=== PATIENT | female | born 1940 | race Caucasian/White ===

== ENCOUNTER → 2017-10-12 | Outpatient (CLI) | payer MEDICARE, BC ==
[2017-10-12 09:32] LABS: Basophils # (A) 0.1 k/uL (0-0.2); Basophils % (A) 1 %; Eosinophils # (A) 0.1 k/uL (0-0.7); Eosinophils % (A) 2 %; HCT 40.9 % (34.0-46.0); HGB 13.6 gm/dL (11.4-16.0); Lymphocytes # (A) 1.1 k/uL (1.0-4.8); Lymphocytes % (A) 25 %; MCH 30.1 pg (25.0-35.0); MCHC 33.2 g/dL (31.0-37.0); MCV 90.8 fL (80.0-100.0); Mean Platelet Volume 6.7; Monocytes # (A) 0.3 k/uL (0-1.0); Monocytes % (A) 6 %; Neutrophils # (A) 2.9 k/uL (1.3-7.7); Neutrophils % (A) 64 %; Platelet Count 293 k/uL (150-450); RDW 13.4 % (11.5-15.5); WBC 4.5 k/uL (3.8-10.6)
[2017-10-12 09:46] LABS: Calcium 9.5 mg/dL (8.4-10.2); Potassium 4.8 mmol/L (3.5-5.1); Total Bilirubin 0.6 mg/dL (0.2-1.3); Total Protein 6.3 g/dL (6.3-8.2)
[2017-10-12 10:01] LABS: T4, Free (Free Thyroxine) 1.66 ng/dL (0.78-2.19)
[2017-10-12 21:31] LABS: Hemoglobin A1C 5.4 % (4.0-6.0)
== END | disposition home or self-care (01) ==
LOC: LABWHC1 09:01
PROVIDERS: ATTEND Internal Medicine
DX: E78.5 Hyperlipidemia, unspecified (principal); I10 Essential (primary) hypertension; Z79.899 Other long term (current) drug therapy; E03.9 Hypothyroidism, unspecified; E55.9 Vitamin D deficiency, unspecified
CPT/HCPCS: 36415; 80053; 80061; 82306; 83036; 84439; 84443; 85025

== ENCOUNTER → 2017-11-09 | Outpatient (CLI) | payer MEDICARE ==
--- NOTE | 2017-11-11 11:45 | MM ---
Reason for exam: screening (asymptomatic). Last mammogram was performed 2 years and 2 months ago. History: Patient is postmenopausal. Physical Findings: A clinical breast exam by your physician is recommended on an annual basis and results should be correlated with mammographic findings. MG 3D Screening Mammo W/Cad Bilateral CC and MLO view(s) were taken. Prior study comparison: September 13, 2015, bilateral MG 3d screening mammo w/cad. August 28, 2014, bilateral MG screening mammo w CAD. There is chronic nodularity in the right breast. No significant changes when compared with prior studies. ASSESSMENT: Benign, BI-RAD 2 RECOMMENDATION: Routine screening mammogram of both breasts in 1 year.
== END | disposition home or self-care (01) ==
LOC: RADMAMWWP 16:36
PROVIDERS: ATTEND Obstetrics & Gynecology
DX: Z12.31 Encounter for screening mammogram for malignant neoplasm of breast (principal)
CPT/HCPCS: 77063; 77067

== ENCOUNTER → 2018-09-21 | Outpatient (CLI) | payer MEDICARE ==
[2018-09-21 10:29] LABS: Basophils # (A) 0.1 k/uL (0-0.2); Basophils % (A) 2 %; Eosinophils # (A) 0.1 k/uL (0-0.7); Eosinophils % (A) 3 %; HGB 13.9 gm/dL (11.4-16.0); Lymphocytes # (A) 1.1 k/uL (1.0-4.8); Lymphocytes % (A) 30 %; MCH 29.6 pg (25.0-35.0); MCHC 33.1 g/dL (31.0-37.0); MCV 89.5 fL (80.0-100.0); Mean Platelet Volume 6.7; Monocytes # (A) 0.2 k/uL (0-1.0); Monocytes % (A) 7 %; Neutrophils # (A) 2.1 k/uL (1.3-7.7); Neutrophils % (A) 57 %; Platelet Count 321 k/uL (150-450); RBC 4.69 m/uL (3.80-5.40); RDW 13.2 % (11.5-15.5); WBC 3.7 k/uL (3.8-10.6)
[2018-09-21 16:01] LABS: African American GFR (CKD) 70.5 (60.0-200.0); Albumin 4.2 g/dL (3.80-4.90); Albumin/Globulin Ratio 2.63 (1.60-3.17); Anion Gap 7.6 mmol/L (4.00-12.00); BUN/Creat Ratio 13.33 Ratio (12.00-20.00); Calcium 9.4 mg/dL (8.7-10.3); Carbon Dioxide 26.4 mmol/L (21.6-31.8); Globulin 1.6 g/dL (1.6-3.3); Potassium 4.5 mmol/L (3.5-5.5); Total Bilirubin 0.6 mg/dL (0.3-1.2); Total Protein 5.8 g/dL (6.2-8.2)
[2018-09-21 16:02] LABS: LDL Cholesterol,Calculated 127.4 mg/dL (0.0-131.0); VLDL Calculation 19.6 mg/dL (5.00-40.00)
[2018-09-21 16:08] LABS: T4, Free (Free Thyroxine) 1.8 ng/dL (0.80-1.80)
== END | disposition home or self-care (01) ==
LOC: LABWHC1 08:43
PROVIDERS: ATTEND Internal Medicine
DX: Z00.00 Encounter for general adult medical examination without abnormal findings (principal); E55.9 Vitamin D deficiency, unspecified; I10 Essential (primary) hypertension; E03.9 Hypothyroidism, unspecified; E78.00 Pure hypercholesterolemia, unspecified
CPT/HCPCS: 36415; 80053; 80061; 82306; 84439; 84443; 85025

== ENCOUNTER → 2018-11-08 | Outpatient (CLI) | payer MEDICARE ==
[2018-11-08 16:59] LABS: T4, Free (Free Thyroxine) 1.5 ng/dL (0.80-1.80)
== END | disposition home or self-care (01) ==
LOC: LABWHC1 09:32
PROVIDERS: ATTEND Internal Medicine
DX: E03.9 Hypothyroidism, unspecified (principal); R53.83 Other fatigue
CPT/HCPCS: 36415; 84439; 84443

== ENCOUNTER 2019-01-01 09:05 | Emergency (ER) | payer MEDICARE ==
[2019-01-01 09:16] VITALS: BP 136/86; PULSE 73; RESP 18; TEMP 98.3
--- NOTE | 2019-01-01 09:39 | ED ---
Female Urogenital HPI - General Chief complaint: Urogenital Stated complaint: Blood in urine Time Seen by Provider: 01/01/19 09:25 Source: patient, RN notes reviewed Mode of arrival: ambulatory Limitations: no limitations - History of Present Illness Initial comments: This is a 78-year-old female presents emergency Department with chief complaint of urinary frequency, urgency and hematuria. Patient states symptoms started overnight she states that she felt that she had ago and They have to the bathroom. Patient states that she had some dribbling and which she then noticed that her urine was slightly pink color. Patient states that it seemed more blood related. Patient states that she does not take any blood thinners. Patient denies any history of urinary tract infections, kidney stones. She denies any flank pain. She has no upper abdominal pain she has some nausea no vomiting no diarrhea she has chronic constipation. - Related Data Home Medications Medication Instructions Recorded Confirmed Levothyroxine Sodium [Synthroid] 75 mcg PO DAILY 09/15/14 09/15/14 Loratadine-Pseudoeph 5-120 mg 1 tab PO Q12HR 09/15/14 09/15/14 [Claritin-D 12 Hour] Sennosides [Senokot] 8.6 mg PO DAILY 09/15/14 09/15/14 Previous Rx's Medication Instructions Recorded HYDROcodone/APAP 5-325MG [[place] 1 each PO Q4HR PRN #10 tab 09/16/14 5-325] Levofloxacin [Levaquin] 750 mg PO DAILY #7 tab 09/16/14 Metoprolol Tartrate [Lopressor] 25 mg PO BID #60 tab 09/16/14 Cephalexin [Keflex] 500 mg PO Q8HR #21 cap 01/01/19 Allergies Allergy/AdvReac Type Severity Reaction Status Date / Time egg Allergy Unknown Verified 09/15/14 09:08 Penicillins Allergy Unknown Verified 09/15/14 09:08 Sulfa (Sulfonamide Allergy Unknown Verified 09/15/14 09:08 Antibiotics) Review of Systems ROS Statement: Those systems with pertinent positive or pertinent negative responses have been documented in the HPI. ROS Other: All systems not noted in ROS Statement are negative. Past Medical History Past Medical History: Thyroid Disorder Additional Past Medical History / Comment(s): hypothyroid, constipation, hugo rgic rhinitis History of Any Multi-Drug Resistant Organisms: None Reported Past Surgical History: Hysterectomy Additional Past Surgical History / Comment(s): Sinus, vein stripping, rectal surgery Past Psychological History: No Psychological Hx Reported Smoking Status: Never smoker Past Alcohol Use History: Occasional Past Drug Use History: None Reported - Past Family History Father Family Medical History: No Reported History Mother Family Medical History: No Reported History General Exam Limitations: no limitations General appearance: alert, in no apparent distress Head exam: Present: atraumatic, normocephalic, normal inspection Eye exam: Present: normal appearance, PERRL, EOMI. Absent: scleral icterus, conjunctival injection, periorbital swelling Respiratory exam: Present: normal lung sounds bilaterally. Absent: respiratory distress, wheezes, rales, rhonchi, stridor Cardiovascular Exam: Present: regular rate, normal rhythm, normal heart sounds. Absent: systolic murmur, diastolic murmur, rubs, gallop, clicks GI/Abdominal exam: Present: soft, tenderness (Mild suprapubic), normal bowel sounds. Absent: distended, guarding, rebound, rigid Back exam: Absent: CVA tenderness (R), CVA tenderness (L) Neurological exam: Present: alert Skin exam: Present: warm, dry, intact, normal color. Absent: rash Course Vital Signs 01/01/19 09:13 Temperature 98.3 F Pulse Rate 73 Respiratory 18 Rate Blood Pressure 136/86 O2 Sat by Pulse 99 Oximetry Medical Decision Making - Medical Decision Making 78-year-old female presents emergency department for hematuria, dysuria or frequency. Patient does have evidence of hemorrhagic cystitis. Patient will be treated accordingly with antibiotics. I did explain that she needs to have close follow-up, recheck and that if she has persistent systems she should have further testing to rule out bladder cancer. Patient family updated and results. - Lab Data Lab Results 01/01/19 Range/Units 09:34 Urine Color Red Urine Appearance Bloody H (Clear) Ur Specific [place] [employer] Urine RBC >182 H (0-5) /hpf Urine WBC >182 H (0-5) /hpf Urine WBC Clumps Many H (None) /hpf Urine Mucus Many H (None) /hpf Disposition Clinical Impression: Hemorrhagic cystitis Disposition: HOME SELF-CARE Condition: Stable Instructions (If sedation given, give patient instructions): Urinary Tract Infection in Women (ED) Additional Instructions: Please return to the Emergency Department if symptoms worsen or any other concerns. Prescriptions: Cephalexin [Keflex] 500 mg PO Q8HR #21 cap Is patient prescribed a controlled substance at d/c from ED?: No Referrals: Jyoti Boateng MD [Primary Care Provider] - 1-2 days Time of Disposition: 10:57
[2019-01-01 10:14] LABS: Appearance,Urine Bloody (Clear); Color,Urine Red; Mucus,Urine Many /hpf; RBC,Urine >182 /hpf (0-5)
== END 2019-01-01 11:08 | disposition home or self-care (01) ==
LOC: EC 09:05
DX: N30.91 Cystitis, unspecified with hematuria (principal); R11.0 Nausea; E03.9 Hypothyroidism, unspecified; K59.09 Other constipation; Z88.0 Allergy status to penicillin; Z88.2 Allergy status to sulfonamides; Z91.012 Allergy to eggs; Z79.890 Hormone replacement therapy; Z79.899 Other long term (current) drug therapy; Z87.09 Personal history of other diseases of the respiratory system; Z98.890 Other specified postprocedural states
CPT/HCPCS: 81001; 87077; 87086; 87186; 99283

== ENCOUNTER → 2019-01-26 | Outpatient (CLI) | payer MEDICARE ==
[2019-01-26 18:09] LABS: Appearance,Urine Cloudy (Clear); Bacteria,Urine Few /hpf; Bilirubin,Urine Negative (Negative); Blood,Urine Trace (Negative); Budding Yeast,Urine Moderate /hpf; Color,Urine Yellow; Glucose,Urine (UA) Negative (Negative); Ketones,Urine Negative (Negative); Leukocyte Esterase,Urine Large (Negative); Nitrite,Urine Positive (Negative); Protein,Urine Negative (Negative); RBC,Urine 4 /hpf (0-5); Specific Gravity,Urine 1.015 (1.001-1.035); Squamous Epithelial Cell,Urine <1 /hpf (0-4); Urobilinogen,Urine <2.0 mg/dL (<2.0); WBC,Urine 73 /hpf (0-5)
== END | disposition home or self-care (01) ==
LOC: LABWHC1 16:25
PROVIDERS: ATTEND Internal Medicine
DX: N39.0 Urinary tract infection, site not specified (principal); R31.9 Hematuria, unspecified
CPT/HCPCS: 81001

== ENCOUNTER → 2019-02-07 | Outpatient (CLI) | payer MEDICARE ==
--- NOTE | 2019-02-07 16:26 | US ---
EXAMINATION TYPE: US kidneys/renal and bladder DATE OF EXAM: 02/07/2019 COMPARISON: US, CT CLINICAL HISTORY: R31.9 hematuria. Patient stated had UTI with gross hematuria in December. EXAM MEASUREMENTS: Right Kidney: 9.4 x 4.1 x 4.6 cm Left Kidney: 9.3 x 4.6 x 4.3 cm Post Void Residual Volume: 19.0 mL Right Kidney: No hydronephrosis or masses seen, prominent renal pelvis is noted Left Kidney: No hydronephrosis seen. Very small shadowing calcification is noted in lower pole = 0.3 x 0.5 x 0.2cm Bladder: wnl Bilateral Jets seen: yes Normal Post Void Residual: yes There is no evidence for hydronephrosis at this point in time. No masses are identified. The urinar y bladder is anechoic. Bilateral ureteral jets are seen. IMPRESSION: Small nonobstructing 5 mm left renal calculus. No hydronephrosis of either kidneys. Bilateral uretera l jets are seen.
== END | disposition home or self-care (01) ==
LOC: RADUSWWP 15:23
PROVIDERS: ATTEND Internal Medicine
DX: N20.0 Calculus of kidney (principal); R31.9 Hematuria, unspecified; Z91.012 Allergy to eggs; Z88.0 Allergy status to penicillin; Z88.2 Allergy status to sulfonamides
CPT/HCPCS: 76770

== ENCOUNTER → 2019-06-09 | Outpatient (CLI) | payer MEDICARE ==
--- NOTE | 2019-06-10 13:26 | MM ---
Reason for exam: screening (asymptomatic). Last mammogram was performed 1 year and 7 months ago. History: Patient is postmenopausal. Physical Findings: A clinical breast exam by your physician is recommended on an annual basis and results should be correlated with mammographic findings. MG 3D Screening Mammo W/Cad Bilateral CC and MLO view(s) were taken. Prior study comparison: November 09, 2017, bilateral MG 3d screening mammo w/cad. September 13, 2015, bilateral MG 3d screening mammo w/cad. There are scattered fibroglandular densities. Posterior intramammary lymph nodes redemonstrated. No significant changes when compared with prior studies. ASSESSMENT: Negative, BI-RAD 1 RECOMMENDATION: Routine screening mammogram of both breasts in 1 year.
== END | disposition home or self-care (01) ==
LOC: RADMAMWWP 13:01
PROVIDERS: ATTEND Internal Medicine
DX: Z12.31 Encounter for screening mammogram for malignant neoplasm of breast (principal)
CPT/HCPCS: 77063; 77067

== ENCOUNTER → 2019-11-03 | Outpatient (CLI) | payer MEDICARE ==
[2019-11-03 08:40] LABS: Basophils # (A) 0.1 k/uL (0-0.2); Basophils % (A) 2 %; Eosinophils # (A) 0.2 k/uL (0-0.7); Eosinophils % (A) 4 %; HCT 43.5 % (34.0-46.0); HGB 14.6 gm/dL (11.4-16.0); Lymphocytes # (A) 1.3 k/uL (1.0-4.8); Lymphocytes % (A) 27 %; MCH 30.9 pg (25.0-35.0); MCHC 33.6 g/dL (31.0-37.0); MCV 91.8 fL (80.0-100.0); Mean Platelet Volume 6.9; Monocytes # (A) 0.4 k/uL (0-1.0); Monocytes % (A) 7 %; Neutrophils # (A) 2.9 k/uL (1.3-7.7); Neutrophils % (A) 59 %; Platelet Count 316 k/uL (150-450); RBC 4.73 m/uL (3.80-5.40)
[2019-11-03 17:21] LABS: Albumin/Globulin Ratio 2.22 (1.60-3.17); Anion Gap 8.1 mmol/L (4.00-12.00); BUN/Creat Ratio 16.67 Ratio (12.00-20.00); Calcium 9.4 mg/dL (8.7-10.3); Carbon Dioxide 26.9 mmol/L (21.6-31.8); Chol/HDL Ratio 3.51; Globulin 1.8 g/dL (1.6-3.3); LDL Cholesterol,Calculated 128.6 mg/dL (0.0-131.0); Non-African American GFR(CKD) 60.4 (60.0-200.0); Potassium 4.3 mmol/L (3.5-5.5); Total Bilirubin 0.5 mg/dL (0.3-1.2); Total Protein 5.8 g/dL (6.2-8.2); VLDL Calculation 19.4 mg/dL (5.00-40.00)
[2019-11-03 17:28] LABS: T4, Free (Free Thyroxine) 1.6 ng/dL (0.80-1.80)
== END | disposition home or self-care (01) ==
LOC: LABWHC1 07:57
PROVIDERS: ATTEND Internal Medicine
DX: Z00.00 Encounter for general adult medical examination without abnormal findings (principal); E78.5 Hyperlipidemia, unspecified; I10 Essential (primary) hypertension
CPT/HCPCS: 36415; 80053; 80061; 84439; 84443; 85025

== ENCOUNTER → 2020-08-07 | Outpatient (CLI) | payer MEDICARE ==
--- NOTE | 2020-08-07 13:48 | XR ---
EXAMINATION TYPE: XR ribs LT DATE OF EXAM: 08/07/2020 COMPARISON: NONE HISTORY: Severe left-sided rib pain for 2 weeks after bending injury. TECHNIQUE: A single frontal and oblique images of the left-sided ribs are obtained. FINDINGS: Exam suboptimal due to only 2 images acquired along with demineralization which is noted to lower radiographic sensitivity. Suboptimal evaluation of lower ribs due to demineralization of osseo us structures on background dense tissue. No acute displaced fracture in the upper to mid ribs. Visua lized left lung grossly clear. Underlying scoliosis is present. IMPRESSION: As above.
== END | disposition home or self-care (01) ==
LOC: RADXRMAIN 11:13
PROVIDERS: ATTEND Internal Medicine
DX: S22.32XB Fracture of one rib, left side, initial encounter for open fracture (principal)

== ENCOUNTER → 2020-08-13 | Outpatient (CLI) | payer MEDICARE ==
--- NOTE | 2020-08-14 12:01 | MM ---
Reason for exam: screening (asymptomatic). Last mammogram was performed 1 year and 2 months ago. History: Patient is postmenopausal. Physical Findings: A clinical breast exam by your physician is recommended on an annual basis and results should be correlated with mammographic findings. MG 3D Screening Mammo W/Cad Bilateral CC and MLO view(s) were taken. Prior study comparison: June 09, 2019, bilateral MG 3d screening mammo w/cad. November 09, 2017, bilateral MG 3d screening mammo w/cad. The breast tissue is heterogeneously dense. This may lower the sensitivity of mammography. No significant changes when compared with prior studies. ASSESSMENT: Benign, BI-RAD 2 RECOMMENDATION: Routine screening mammogram of both breasts in 1 year.
--- NOTE | 2020-08-15 09:32 | BD ---
EXAMINATION TYPE: Axial Bone Density DATE OF EXAM: 08/13/2020 COMPARISON: 06/29/2006 CLINICAL HISTORY: Height: 60.5 IN Weight: 122 LBS FRAX RISK QUESTIONS: History of Fracture in Adulthood: LT WRIST FX AGE 72 Secondary Osteoporosis: 3. Menopause before 45: YES TOTAL HYST AGE 29 RISK FACTORS HISTORY OF: History of Wrist Fracture: LT WRIST AGE 72 Surgery to Wrist (left): AGE 72 Active: YES Diet low in dairy products/other sources of calcium: YES Postmenopausal woman: TOTAL HYST AGE 29 Lost more than 2 inches in height since high school: YES 3 INCHES MEDICATIONS: Thyroid Medications: YES Which medication: Levothyroxine How Long: SINCE Additional Medications: LEVOTHYROXINE,HIGH BLOOD PRESSURE EXAM MEASUREMENTS: Bone mineral densitometry was performed using the [email or web address] System. Bone mineral density as measured about the Lumbar spine is: ----- L1-L4(G/cm2): 0.645 T Score Values are as follows: ----- L2: -5.3 ----- L3: -4.6 ----- L4: -3.6 ----- L1-L4: -4.5 Bone mineral density has: Increased 3.1% since study of: 06/29/2006 Bone mineral density about the R hip (g/cm2): 0.542 Bone mineral density about the L hip (g/cm2): 0.564 T Score values are as follows: -----R Neck: -3.6 -----L Neck: -3.4 -----R Total: -3.4 -----L Total: -3.3 Bone mineral density has: Decreased -15.1% since study of: 06/29/2006 IMPRESSION: Osteoporosis NOTE: T-SCORE=SD OF THE YOUNG ADULT MEAN.
== END | disposition home or self-care (01) ==
LOC: RADMAMWWP 14:28
PROVIDERS: ATTEND Obstetrics & Gynecology
DX: Z12.31 Encounter for screening mammogram for malignant neoplasm of breast (principal); M81.0 Age-related osteoporosis without current pathological fracture; Z78.0 Asymptomatic menopausal state
CPT/HCPCS: 77063; 77067; 77080

== ENCOUNTER → 2021-02-11 | Outpatient (CLI) | payer MEDICARE ==
[2021-02-11 14:57] LABS: Basophils # (A) 0.07 X 10*3/uL (0.00-0.10); Basophils % (A) 1.5 %; Eosinophils # (A) 0.13 X 10*3/uL (0.04-0.35); Eosinophils % (A) 2.7 %; HCT 41.5 % (37.2-46.3); HGB 13.8 g/dL (12.0-15.0); Lymphocytes # (A) 1.19 X 10*3/uL (0.90-5.00); Lymphocytes % (A) 24.8 %; MCH 30.5 pg (27.0-32.0); MCHC 33.3 g/dL (32.0-37.0); MCV 91.6 fL (80.0-97.0); Mean Platelet Volume 9.5 fL (9.5-12.2); Monocytes # (A) 0.48 X 10*3/uL (0.20-1.00); Neutrophils # (A) 2.91 X 10*3/uL (1.80-7.70); Neutrophils % (A) 60.8 %; Platelet Count 318 X 10*3/uL (140-440); RBC 4.53 X 10*6/uL (4.10-5.20); RDW 13.2 % (11.5-14.5); WBC 4.79 X 10*3/uL (4.50-10.00)
[2021-02-11 16:14] LABS: Albumin 4.4 g/dL (3.8-4.9); Albumin/Globulin Ratio 2.37 (1.60-3.17); Anion Gap 11.9 mmol/L (4.00-12.00); BUN/Creat Ratio 12.85 Ratio (12.00-20.00); Blood Urea Nitrogen 11.1 mg/dL (9.0-27.0); Calcium 9.5 mg/dL (8.7-10.3); Carbon Dioxide 23.9 mmol/L (21.6-31.8); Chol/HDL Ratio 4.17 Ratio; Globulin 1.9 g/dL (1.6-3.3); HDL Cholesterol 52.7 mg/dL (40.00-60.00); LDL Cholesterol,Calculated 141.3 mg/dL (0.0-131.0); Potassium 4.4 mmol/L (3.5-5.5); T4, Free (Free Thyroxine) 1.68 ng/dL (0.800-1.800); Total Bilirubin 0.5 mg/dL (0.30-1.20); Total Protein 6.2 g/dL (6.2-8.2)
== END | disposition home or self-care (01) ==
LOC: LABWHC1 09:12
PROVIDERS: ATTEND Internal Medicine
DX: Z00.00 Encounter for general adult medical examination without abnormal findings (principal)
CPT/HCPCS: 36415; 80053; 80061; 82306; 84439; 84443; 85025

== ENCOUNTER → 2021-06-17 | Outpatient (CLI) | payer MEDICARE ==
--- NOTE | 2021-06-17 10:06 | CT ---
EXAMINATION TYPE: CT abdomen pelvis w con DATE OF EXAM: 06/17/2021 COMPARISON: CT dated 09/15/2014 HISTORY: diverticulitis CT DLP: 467.20 mGycm Automated exposure control for dose reduction was used. TECHNIQUE: Helical acquisition of images was performed from the lung bases through the pelvis. CONTRAST: Performed with Oral Contrast and with IV Contrast, patient injected with 80 mL mL of Isovue 300. FINDINGS: LUNG BASES: Unremarkable lung bases. Coronary arterial calcifications. LIVER/GB: A few hepatic cysts measuring up to 11 mm. Unremarkable liver otherwise. No radiodense gall bladder calculi or signs of acute cholecystitis. PANCREAS: Small/atrophic. No definite pancreatic lesion. SPLEEN: No significant abnormality is seen. ADRENALS: No significant abnormality is seen. KIDNEYS: Few bilateral renal hypodensities, likely representing tiny renal cysts, otherwise unremarka ble kidneys. FREE AIR: No free air is visualized. RETROPERITONEAL ADENOPATHY: No pathologically enlarged REPRODUCTIVE ORGANS: Previous hysterectomy. No gross adnexal mass. URINARY BLADDER: No significant abnormality is seen. PELVIC ADENOPATHY: No pathologically enlarged OSSEOUS STRUCTURES: Diffuse osteopenia. Grade 1 anterolisthesis of L4 over L5 with severe right L4-5 neural foraminal stenosis. Dextroscoliosis of the upper lumbar spine. BOWEL: Hiatal hernia containing a small portion of the stomach. Unremarkable remainder of the stomac h, duodenum and small bowel. Extensive colonic diverticulosis most evident involving the sigmoid colo n and to a lesser extent the descending colon. Segments of nonspecific colonic wall thickening, for e xample the inferior aspect of the ascending colon and segments in the descending colon, please correl ate with coloscopy results. Significant fecal loading of the colon suggestive of constipation. Ileoce rita conjunction lipoma measuring 2.2 cm. OTHER: Excessive arterial atherosclerotic calcifications. No sizable ascites. IMPRESSION: Colonic wall thickening most evident seen involving the inferior aspect of the ascending colon with s horter segments of the descending colon, nonspecific. Underlying colitis or colonic lesion cannot be excluded, please correlate clinically and with coloscopy results. Extensive colonic diverticulosis wi th significant colonic fecal loading suggestive of constipation. Other incidental findings as detaile d above.
== END | disposition home or self-care (01) ==
LOC: RADCTMAIN 07:39
PROVIDERS: ATTEND Surgery Plastic and Reconstructive Surgery
DX: K57.30 Diverticulosis of large intestine without perforation or abscess without bleeding (principal); K63.89 Other specified diseases of intestine
CPT/HCPCS: 82565; 84520; 74177; 36415; Q9967

== ENCOUNTER → 2021-10-01 | Outpatient (CLI) | payer MEDICARE ==
[2021-10-01 14:50] LABS: HCT 42.5 % (37.2-46.3); HGB 13.6 g/dL (12.0-15.0); MCH 29.9 pg (27.0-32.0); MCV 93.4 fL (80.0-97.0); Mean Platelet Volume 10.2 fL (9.5-12.2); NRBC Per 100 WBC 0 /100 WBCS (0.0-0.0); Platelet Count 329 X 10*3/uL (140-440); RBC 4.55 X 10*6/uL (4.10-5.20); RDW 13.1 % (11.5-14.5); WBC 4.43 X 10*3/uL (4.50-10.00)
[2021-10-01 15:07] LABS: ALT 11 U/L (8-44); AST 22 U/L (13-35); BUN/Creat Ratio 13.78 Ratio (12.00-20.00); Blood Urea Nitrogen 12.4 mg/dL (9.0-27.0); Calcium 9.4 mg/dL (8.7-10.3); Carbon Dioxide 25.9 mmol/L (20.0-27.5); Chloride 105 mmol/L (96-109); Chol/HDL Ratio 3.44 Ratio; Glucose 83 mg/dL (70-110); LDL Cholesterol,Calculated 119.7 mg/dL (0.0-131.0); Non-African American GFR(CKD) 59.5 (60.0-200.0); Potassium 4.5 mmol/L (3.5-5.5); Sodium 141 mmol/L (135-145); VLDL Calculation 19.32 mg/dL (5.00-40.00)
== END | disposition home or self-care (01) ==
LOC: LABWHC1 08:18
PROVIDERS: ATTEND Nurse Practitioner Family
DX: I10 Essential (primary) hypertension (principal); E78.2 Mixed hyperlipidemia
CPT/HCPCS: 36415; 80048; 80061; 84443; 84450; 84460; 85027

== ENCOUNTER → 2021-10-31 | Outpatient (CLI) | payer MEDICARE ==
--- NOTE | 2021-11-01 13:30 | MM ---
Reason for Exam: Screening (asymptomatic). Last mammogram was performed 1 year(s) and 2 month(s) ago. Patient History: Menarche at age 13. First Full-Term at age 15. Left ovary removed at age 29. Right ovary removed at age 17. Hysterectomy at age 29. Postmenopausal. Risk Values: [place] 5 year model risk: 1.0%. NCI Lifetime model risk: 1.4%. Prior Study Comparison: 11/09/2017 Bilateral Screening Mammogram, [facility]. 06/09/2019 Bilateral Screening Mammogram, [facility]. 08/13/2020 Bilateral Screening Mammogram, [facility]. Tissue Density: The breast tissue is heterogeneously dense. This may lower the sensitivity of mammography. Findings: Analyzed By CAD. There is no suspicious group of microcalcifications or new suspicious mass in either breast. Stable bilateral chronic nodularity and vascular calcifications. No significant change from prior examination. Overall Assessment: Benign, BI-RAD 2 Management: Screening Mammogram of both breasts in 1 year. A clinical breast exam by your physician is recommended on an annual basis and results should be correlated with mammographic findings. Electronically signed and approved by: William Cain D.O.
== END | disposition home or self-care (01) ==
LOC: RADMAMWWP 13:43
PROVIDERS: ATTEND Obstetrics & Gynecology
DX: Z12.31 Encounter for screening mammogram for malignant neoplasm of breast (principal); Z78.0 Asymptomatic menopausal state
CPT/HCPCS: 77063; 77067

== ENCOUNTER → 2022-02-10 | Outpatient (CLI) | payer MEDICARE ==
[2022-02-10 18:05] LABS: HCT 41.6 % (37.2-46.3); HGB 13.7 g/dL (12.0-15.0); MCHC 32.9 g/dL (32.0-37.0); Mean Platelet Volume 9.9 fL (9.5-12.2); NRBC Per 100 WBC 0 /100 WBCS (0.0-0.0); Platelet Count 313 X 10*3/uL (140-440); RBC 4.57 X 10*6/uL (4.10-5.20); RDW 13.1 % (11.5-14.5); WBC 4.12 X 10*3/uL (4.50-10.00)
[2022-02-10 18:24] LABS: African American GFR (CKD) 79.6 (60.0-200.0); Albumin 4.6 g/dL (3.8-4.9); Albumin/Globulin Ratio 2.19 (1.60-3.17); Anion Gap 9.5 mmol/L (10.00-18.00); BUN/Creat Ratio 18.13 Ratio (12.00-20.00); Blood Urea Nitrogen 14.5 mg/dL (9.0-27.0); Calcium 9.8 mg/dL (8.7-10.3); Carbon Dioxide 26.5 mmol/L (20.0-27.5); Globulin 2.1 g/dL (1.6-3.3); Non-African American GFR(CKD) 68.7 (60.0-200.0); Potassium 4.6 mmol/L (3.5-5.5); Total Bilirubin 0.4 mg/dL (0.30-1.20); Total Protein 6.7 g/dL (6.2-8.2)
== END | disposition home or self-care (01) ==
LOC: LABWHC1 11:48
PROVIDERS: ATTEND Surgery Plastic and Reconstructive Surgery
DX: Z01.812 Encounter for preprocedural laboratory examination (principal)
CPT/HCPCS: 36415; 80053; 85027

== ENCOUNTER 2022-02-19 09:27 | Inpatient (IN) | payer MEDICARE ==
[2022-02-17 11:28] VITALS: BMI 20.8
--- NOTE | 2022-02-19 08:48 | P.GSHP ---
History of Present Illness H&P Date: 02/19/22 CHIEF COMPLAINT: Sigmoid diverticulitis with partial obstruction HISTORY OF PRESENT ILLNESS: The patient is a 81-year-old female with long- standing history of sigmoid diverticulitis with change in bowel habits and partial obstruction for 3 months. He completed a colonoscopy which excluded underlying neoplasm. Now he presents for sigmoid colon resection. PAST MEDICAL HISTORY: Please see list. PAST SURGICAL HISTORY: Please see list. MEDICATIONS: Please see list. ALLERGIES: Please see list. SOCIAL HISTORY: No illicit drug use FAMILY HISTORY: No reports of Crohn disease or ulcerative colitis. Family history of malignant hyperthermia. REVIEW OF ORGAN SYSTEMS: CONSTITUTIONAL: Denies any fever or chills. HEENT: Denies any nosebleeds. No difficulty swallowing. Wears glasses. LYMPHATIC: The patient denies any lumps and bumps around the neck. ENDOCRINE: Has hypothyroidism. Has blood sugar glucose intolerance. RESPIRATORY: Denies pneumonia. Denies any troubles with breathing or dyspnea on exertion. CARDIOVASCULAR: Denies any chest pain, palpitations, or recent heart attacks. Has hypertensive heart disease. GASTROINTESTINAL: Has chronic diverticulitis. GENITOURINARY: Has increased urinary frequency. MUSCULOSKELETAL: Has back pain, stiffness, joint arthritis. NEUROLOGIC: Denies any numbness or tingling along the distal extremities. No seizure disorders or headaches. PSYCHIATRIC: Denies depression or suidical ideation. HEMATOLOGIC: Denies any abnormal bleeding or bruising. PHYSICAL EXAM: VITAL SIGNS: Stable GENERAL: Well-developed pleasant in no acute distress. HEENT: No scleral icterus. Extraocular movements grossly intact. Moist buccal mucosa. NECK: Supple without lymphadenopathy. CHEST: Unlabored respirations. Equal bilateral excursions. CARDIOVASCULAR: Regular rate and rhythm. Distal 2+ pulses. ABDOMEN: Soft, nontender, nondistended. MUSCULOSKELETAL: No clubbing, cyanosis, or edema. NERUO: Cranial nerves 2-12 grossly intact. PSYCH: Alert and oriented to person place and time. ASSESSMENT: 1. Chronic diverticulitis with partial obstruction 2. Hypertensive heart disease 3. Family history of malignant hyperthermia PLAN: 1. Benefits and risks of surgical robotic sigmoid resection was reviewed in detail. Robotic-assisted approach was also described. 2. Enhanced colon recovery program. 3. DVT prophylaxis. 4. Antibiotic prophylaxis. 5. Inpatient hospitalization greater than 2 nights. Past Medical History Past Medical History: Hypertension, Osteoarthritis (OA), Pneumonia, Skin Disorder, Thyroid Disorder Additional Past Medical History / Comment(s): chronic constipation, allergic rhinitis, diverticulitis, skin condition called DSAP, hx migraines, hiatal hernia, History of Any Multi-Drug Resistant Organisms: None Reported Past Surgical History: Hysterectomy Additional Past Surgical History / Comment(s): vein stripping, rectal surgery for rectal fissure & hemorrhoids, cataracts removed, sinus surg., surg. for tubal preganancy Past Anesthesia/Blood Transfusion Reactions: Family Hisory of Malignant Hyperthermia Additional Past Anesthesia/Blood Transfusion Reaction / Comment(s): grandson has malignant hyperthermia & TAR syndrome. In [facility] in . 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 no one else in family tested Smoking Status: Former smoker - Past Family History Father Family Medical History: Pulmonary Embolus Mother Family Medical History: No Reported History Medications and Allergies Home Medications Medication Instructions Recorded Confirmed Type Loratadine-Pseudoeph 5-120 mg 1 tab PO DAILY 09/15/14 02/17/22 History [Claritin-D 12 Hour] ALPRAZolam [Xanax] 0.25 mg PO TID PRN 07/22/21 02/17/22 History Metoprolol Succinate (ER) [Toprol 25 mg PO DAILY 07/22/21 02/17/22 History XL] Acetaminophen Tab [Tylenol] 500 mg PO Q6H PRN 02/17/22 02/17/22 History Bio Cholesterol Wellness 1 cap PO DAILY 02/17/22 02/17/22 History Cholecalciferol [Vitamin D3 (25 50 mcg PO DAILY 02/17/22 02/17/22 History Mcg = 1000 Iu)] Lactulose 30 ml PO DIRECTED 02/17/22 02/17/22 History Levothyroxine Sodium [Synthroid] 50 mcg PO DAILY 02/17/22 02/17/22 History Senna [place] 125 mg PO HS PRN 02/17/22 02/17/22 History Allergies Allergy/AdvReac Type Severity Reaction Status Date / Time egg Allergy eye Verified 02/17/22 11:06 swelling Penicillins Allergy Dyspnea, Verified 02/17/22 11:06 lips swelled, rapid heart rate Sulfa (Sulfonamide Allergy Anaphylaxis Verified 02/17/22 11:06 Antibiotics)
[~2022-02-19 09:27] MED LIST: Antibiotics per Pharmacy 1 EACH MISC MISCELLANE PRN; HEPARIN SODIUM,PORCINE/PF 5,000 UNIT/0.5 ML SYRINGE SQ PRN; LIDOCAINE 1% (10MG/ML) FOR IV START INTRADERMA PRN
[2022-02-19 11:21] LABS: Glucose,Whole Blood 63 mg/dL (70-110)
[2022-02-19] MEDS: LACTATED RINGERS 1,000 ML IV SCH (11:26)
[2022-02-19] MEDS ORDERED: DEXTROSE 50% SYRINGE 50 ML IVP STA (11:27)
[2022-02-19] MEDS ORDERED: PROPOFOL 10 MG/ML 20 ML VIAL IV ONE (11:29)
[2022-02-19 11:56] LABS: Albumin 4.5 g/dL (3.5-5.0); Calcium 9.2 mg/dL (8.4-10.2); Potassium 4.2 mmol/L (3.5-5.1); Total Bilirubin 0.7 mg/dL (0.2-1.3); Total Protein 6.7 g/dL (6.3-8.2)
[2022-02-19 12:01] LABS: Basophils # (A) 0.1 k/uL (0-0.2); Basophils % (A) 1 %; Eosinophils # (A) 0.1 k/uL (0-0.7); Eosinophils % (A) 2 %; HCT 40.7 % (34.0-46.0); HGB 14.3 gm/dL (11.4-16.0); Lymphocytes # (A) 1.3 k/uL (1.0-4.8); Lymphocytes % (A) 22 %; MCH 31.5 pg (25.0-35.0); MCHC 35.2 g/dL (31.0-37.0); MCV 89.5 fL (80.0-100.0); Mean Platelet Volume 7.9; Monocytes # (A) 0.3 k/uL (0-1.0); Monocytes % (A) 5 %; Neutrophils % (A) 68 %; Platelet Count 318 k/uL (150-450); RBC 4.55 m/uL (3.80-5.40); RDW 13.3 % (11.5-15.5); WBC 5.9 k/uL (3.8-10.6)
[2022-02-19] MEDS ORDERED: ALPRAZolam 0.25 MG TAB PO PRN (12:01)
[2022-02-19] MEDS ORDERED: ACETAMINOPHEN TAB 500 MG TAB PO PRN (12:01)
[2022-02-19 12:09] LABS: Glucose,Whole Blood 125 mg/dL (70-110)
[2022-02-19] MEDS ORDERED: HYDROmorphone 0.5 MG/0.5 ML SYRINGE IVP PRN (12:32)
[2022-02-19] MEDS ORDERED: HYDROmorphone 1 MG/ML 1 ML SYRINGE IVP PRN (12:32)
[2022-02-19] MEDS ORDERED: ONDANSETRON 4 MG/2 ML VIAL IVP PRN (12:32)
[2022-02-19] MEDS ORDERED: NALOXONE 0.4 MG/ML 1 ML VIAL IV PRN (12:32)
[2022-02-19] MEDS ORDERED: LACTATED RINGERS 1,000 ML IV ONE (12:36)
--- NOTE | 2022-02-19 12:38 | P.PCN ---
Date of Procedure: 02/19/22 Description of Procedure: PREOPERATIVE DIAGNOSIS: Diverticulosis with large bowel obstruction POSTOPERATIVE DIAGNOSIS: Diverticulosis with large bowel obstruction Ascending colon adenoma OPERATION: Colonoscopy to the ascending colon Colonoscopy with cold biopsy forceps SURGEON: Teresa Britton MD. ANESTHESIA: MAC. INDICATIONS: The patient is a 81-year-old female who presents for partial large bowel obstruction due to sigmoid colon. Benefits and risks were described and informed consent was obtained. DESCRIPTION OF PROCEDURE: The patient had undergone Sutab prep. The patient had been brought into the operating room and laid in the left lateral decubitus position. After adequate intravenous sedation, the rectum was examined with 2% lidocaine jelly. External hemorrhoids were encountered. The rectal tone was within normal limits. No lesions were palpated in the rectal vault. An Olympus colonoscope was advanced. Due to moderate redundancy of sigmoid colon, scope was advanced to ascending colon despite abdominal wall pressure. The prep was fair. Sigmoid diverticulosis was encountered with moderate redundancy. No colonic polyps were found. No evidence of focal colitis was found. Retroflexion of the scope demonstrated grade 3 internal hemorrhoids without active bleeding or infla mmation. The colon was desufflated. The patient had tolerated the procedure well. Withdrawal time was over 6 minutes. FINDINGS: Aronchick preparation quality scale 2 (1-5) Internal hemorrhoids, grade 3 External prolapsed hemorrhoids, grade 2 No arteriovenous malformations. Removal of one polyp: -Cold biopsy forcep ascending colon, 4 mm No focal colitis. RECOMMENDATIONS: Lower endoscopy in 3 years, 2024 Proceed with colon resection due to stricture at sigmoid colon
[2022-02-19] MEDS: metroNIDAZOLE 500 MG TAB PO SCH ×2 (13:23→17:40)
[2022-02-19] MEDS: NEOMYCIN 500 MG TAB PO SCH ×2 (13:23→17:40)
[2022-02-19] MEDS ORDERED: PEG 3350 (420 GM/BTL) + LYTES 4,000 ML BOTTLE PO ONE (15:00)
[2022-02-19] MEDS: D5-0.45% NACL WITH KCL 20MEQ/L 1,000 ML IV SCH (16:50)
[2022-02-19 17:16] LABS: Glucose,Whole Blood 76 mg/dL (70-110)
--- NOTE | 2022-02-19 20:58 | P.PN ---
Progress Note - Text Progress Note Date: 02/19/22 Patient reevaluated this evening. She is tolerating bowel prep. All questions addressed regarding expectations of surgery. Anesthesia blocks described for optimal pain management. Anticipated length of surgery including sigmoid resection reviewed in detail.
[2022-02-19] MEDS ORDERED: TEMAZEPAM 15 MG CAP PO ONE (21:00)
[2022-02-19] MEDS ORDERED: NEOMYCIN 500 MG TAB PO ONE (23:00)
[2022-02-19] MEDS ORDERED: metroNIDAZOLE 500 MG TAB PO ONE (23:00)
[2022-02-20] MEDS: LEVOTHYROXINE 50 MCG TAB PO SCH (06:47)
[2022-02-20] MEDS: LACTATED RINGERS 1,000 ML IV SCH (06:53)
[2022-02-20] MEDS ORDERED: MELOXICAM 7.5 MG TAB PO PRN (07:00)
[2022-02-20] MEDS ORDERED: ALVIMOPAN 12 MG CAPSULE PO PRN (07:00)
[2022-02-20] MEDS ORDERED: ACETAMINOPHEN TAB 500 MG TAB PO PRN (07:00)
[2022-02-20 07:45] LABS: Basophils # (A) 0.1 k/uL (0-0.2); Basophils % (A) 1 %; Eosinophils # (A) 0.1 k/uL (0-0.7); Eosinophils % (A) 3 %; HCT 37.6 % (34.0-46.0); HGB 13.2 gm/dL (11.4-16.0); Lymphocytes # (A) 1.1 k/uL (1.0-4.8); Lymphocytes % (A) 27 %; MCH 31.9 pg (25.0-35.0); Mean Platelet Volume 7.8; Monocytes # (A) 0.3 k/uL (0-1.0); Monocytes % (A) 8 %; Neutrophils # (A) 2.3 k/uL (1.3-7.7); Neutrophils % (A) 58 %; Platelet Count 268 k/uL (150-450); RBC 4.13 m/uL (3.80-5.40); RDW 13.1 % (11.5-15.5)
[2022-02-20] MEDS: PANTOPRAZOLE 40 MG/10 ML VIAL IV SCH (07:53)
[2022-02-20] MEDS: D5-0.45% NACL WITH KCL 20MEQ/L 1,000 ML IV SCH ×2 (07:53→18:18)
[2022-02-20] MEDS: METOPROLOL SUCCINATE (ER) 25 MG TAB.ER.24H PO SCH (07:54)
[2022-02-20 07:56] LABS: ALT 17 U/L (4-34); AST 29 U/L (14-36); African American GFR (CKD) >90 (>60 ml/min/1.73 sqM); Albumin 3.7 g/dL (3.5-5.0); Albumin/Globulin Ratio 1.8; Alkaline Phosphatase 59 U/L (38-126); Anion Gap 4 mmol/L; Blood Urea Nitrogen 10 mg/dL (7-17); Calcium 8.6 mg/dL (8.4-10.2); Carbon Dioxide 24 mmol/L (22-30); Chloride 109 mmol/L (98-107); Globulin 2.1 g/dL; Glucose 100 mg/dL (74-99); Magnesium 1.9 mg/dL (1.6-2.3); Non-African American GFR(CKD) 85 (>60 ml/min/1.73 sqM); Phosphorus 2.6 mg/dL (2.5-4.5); Potassium 3.8 mmol/L (3.5-5.1); Sodium 137 mmol/L (137-145); Total Bilirubin 0.5 mg/dL (0.2-1.3); Total Protein 5.8 g/dL (6.3-8.2)
--- NOTE | 2022-02-20 09:01 | XR ---
EXAMINATION TYPE: XR chest 1V portable DATE OF EXAM: 02/20/2022 COMPARISON: 12/25/2021 INDICATION: Presurgical clearance TECHNIQUE: Single frontal view of the chest is obtained. FINDINGS: The heart size is normal. The pulmonary vasculature is normal. The lungs are clear. Mild thoracic scoliosis. IMPRESSION: 1. No acute pulmonary process.
[2022-02-20 09:53] LABS: Glucose,Whole Blood 90 mg/dL (70-110)
[2022-02-20] MEDS ORDERED: LACTATED RINGERS 1,000 ML IV ONE ×3 (09:59→13:30)
[2022-02-20] MEDS ORDERED: IV FLUID CONTINUATION 850 ML IV ONE (10:00)
[2022-02-20] MEDS ORDERED: DEXAMETHASONE SOD PHOSPHATE 4 MG/ML 1 ML VIAL IV ONE ×2 (10:00→10:15)
[2022-02-20] MEDS ORDERED: ONDANSETRON 4 MG/2 ML VIAL IVP ONE ×2 (10:00→10:15)
[2022-02-20] MEDS ORDERED: MIDAZOLAM 2 MG/2 ML VIAL IV ONE (10:56)
--- NOTE | 2022-02-20 11:12 | P.ANPRN ---
Procedure Note - Anesthesia - Nerve Block Performed Time Out Performed: Yes (:56) Date of Procedure: 02/20/22 Procedure Start Time: Procedure Stop Time: :05 Location of Patient: PreOp Indication: Acute Post-Operative Pain, Requested by Surgeon (Dr Lucas) Sedation Type: Sedate with meaningful contact maintained Preparation: Sterile Prep Position: Prone Catheter: None Needle Types: Pajunk Needle Gauge: 21 Ultrasound used to visualize needle placement: Yes Ultrasound used to observe medication spread: Yes Injectate: 0.5% Ropivacaine (see comment for volume) (10cc +10cc PF Normal saline each side) Blood Aspirated: No Pain Paresthesia on Injection Noted: No Resistance on Injection: Normal Image Stored and Saved: Yes Events: Uneventful and Well Tolerated
[2022-02-20] MEDS ORDERED: LABETALOL 5 MG/ML VIAL MDV ONE (12:15)
[2022-02-20] MEDS ORDERED: KETOROLAC 15 MG/ML 1 ML VIAL ONE (12:15)
[2022-02-20] MEDS ORDERED: PROPOFOL 10 MG/ML 20 ML VIAL IV ONE (12:15)
[2022-02-20] MEDS ORDERED: KETAMINE 10 MG/ML 20 ML VIAL ONE (12:15)
[2022-02-20] MEDS ORDERED: NEOSTIGMINE 1 MG/ML 10 ML VIAL ONE (12:15)
[2022-02-20] MEDS ORDERED: ONDANSETRON 4 MG/2 ML VIAL ONE (12:15)
[2022-02-20] MEDS ORDERED: ROPIVACAINE 5 MG/ML 30 ML VIAL ONE (12:15)
[2022-02-20] MEDS ORDERED: HYDROmorphone (PF) 1 MG/ML ONE (12:15)
[2022-02-20] MEDS ORDERED: SODIUM CHLORIDE 0.9% (PF) 10 ML VIAL ONE (12:15)
[2022-02-20] MEDS ORDERED: fentaNYL (PF) 50 MCG/ML 2 ML AMP ONE (12:15)
[2022-02-20] MEDS ORDERED: LIDOCAINE 2% INJ 20 MG/ML (2 ML VIAL) ONE (12:15)
[2022-02-20] MEDS ORDERED: GLYCOPYRROLATE 0.2 MG/ML 2 ML VIAL ONE (12:15)
[2022-02-20] MEDS ORDERED: ROCURONIUM 10 MG/ML (5 ML VIAL) IV ONE (12:15)
[2022-02-20] MEDS ORDERED: SODIUM CHLORIDE 0.9% 50 ML with ceFAZolin 2,000 MG IV ONE ×2 (12:21)
[2022-02-20] MEDS ORDERED: SODIUM CHLORIDE 0.9% 100 ML with metroNIDAZOLE-NS PMX 500 MG IV ONE ×2 (12:21)
[2022-02-20] MEDS ORDERED: LIDOCAINE 1%-EPI 1:100,000 20 ML VIAL SQ ONE ×2 (12:31→13:18)
[2022-02-20] MEDS ORDERED: BENZOCAINE/MENTHOL LOZENG 1 EACH LOZENGE MUCOUS MEM PRN (16:19)
[2022-02-20] MEDS ORDERED: HYDROmorphone 0.5 MG/0.5 ML SYRINGE IVP ONE (16:30)
--- NOTE | 2022-02-20 16:42 | P.OP ---
Date of Procedure: 02/20/22 Description of Procedure: SURGEON: LISSA ALONSO MD PREOPERATIVE DIAGNOSES: 1. Sigmoid diverticulitis with large bowel obstruction 2. Hypertensive heart disease 3. Hypothyroidism 4. Chronic constipation 5. Migraines 6. Diaphragmatic hiatal hernia POSTOPERATIVE DIAGNOSES: 1. Sigmoid diverticulitis with large bowel obstruction 2. Hypertensive heart disease 3. Hypothyroidism 4. Chronic constipation 5. Migraines 6. Diaphragmatic hiatal hernia OPERATION: 1. Robotic-assisted daVinci Xi sigmoid colectomy with low anterior resection using 29 mm Ethicon powered stapler 2. Robotic-assisted daVinci Xi laparoscopic lysis of adhesions 3. Intraoperative colonoscopy used for sigmoidoscopy Anesthesia: GETA, local, regional Estimated Blood Loss (ml): 10 Pathology: 1. Sigmoid colon 2. EEA donuts 3. Proximal colotomy Condition: stable Disposition: floor COMPLICATIONS: None. Operative Findings: 1. Redundant sigmoid colon with stricture resected 2. Anastomosis with EEA stapler 29 mm 3. No tension or torsion along the anastomosis 4. Doughnuts thick and both sides and viable 5. Moderately redundant sigmoid colon without tension at anastomosis 6. Negative leak test with viable anastomosis. INDICATIONS: The patient is a 81-year-old female who presents with change in bowel habits, sigmoid diverticulosis with chronic constipation due to stricture. She had prior to the colonoscopy however unsuccessful. Benefits and risks of surgical intervention was described in detail including infection, injury to the ureter, colostomy creation, possibility for additional surgery was discussed at length. Informed consent was obtained. All questions of the patient and family were answered. DESCRIPTION: Earlier the patient had undergone a bowel prep using the enhanced colon recovery program. The patient was transferred to the operating room and placed supine. After general induction, the abdomen was prepped and draped in standard sterile fashion. Ioban was placed along the abdomen to minimize any contamination of skin floor. A Sims catheter was placed. After a timeout protocol was performed, attention was then brought to the left upper quadrant whereby a 0 degree 5 mm laparoscopic trocar entry was performed. The abdominal cavity was entered and insufflated to 15 mmHg pressure, which was tolerated well. Diagnostic laparoscopy confirmed moderately redundant sigmoid colon and active sigmoid volvulus. The small bowel was unremarkable. Next a robotic 12-mm trocar was placed along the right lateral abdominal wall 20 cm superior from the pelvis. Two 8 mm ports were placed along the upper abdomen. Ports were placed 10 cm apart from each other including 20 cm away from the target anatomy of the left pelvis. The 12-mm port was exchanged for an 8 mm robotic port at the left upper quadrant. The robot was docked along the left lateral abdomen. The patient was positioned in steep Trendelenburg position at 21-degrees. Using atraumatic graspers and vessel sealer, the robotic system was docked and primed as described. Instruments were interchanged by the portfolio assistant including hook cautery, needle spotter driver, robotic stapler and vessel sealer. The robot stapler was prepared along the right lateral abdominal wall. The stapler 12-mm port was arranged along the right lateral abdominal wall. Next, attention was brought to identify the sigmoid colon. A stay suture using 3- 0 silk was placed along the anterior serosa of the redundant sigmoid colon. The sigmoid mesentery was mobilized using a vessel sealer whereby the descending colon was marked and tagged. Using multiple fires of the robot stapler 60 mm green load, the proximal sigmoid colon was divided. The mesentery of the sigmoid colon was mobilized towards the pelvic brim and sacral promontory using a vessel sealer. Next, the sigmoid colon was divided using the robotic stapler 60 mm black staple loads. The rest of the sigmoid colon mesentery was mobilized using vessel sealer. Additionally, the sigmoid colon was mobilized onto the colon to minimize injury to the ureters. Additionally, moderate adhesions at the cecum and right upper quadrant ascending colon was identified and similarly lysed using vessel sealer for lysis of adhesions. I went to the foot of the bed to confirm sizers and placement of 29-mm Ethicon powered stapler. I re-scrubbed into the case. The robotic arms were temporarily undocked. A 29-mm anvil was placed with a 3-0 silk sutured at the tip of the anvil producer. Then the anvil was placed via the left upper quadrant 12 mm port. All robotic arms were re-docked. I went back to the console. The staple line was opened using cautery. The anvil was entered into the proximal descending colon. The colotomy was closed using 60 mm green load. Next, the sharp tip of the anvil producer was brought through the staple line. The anvil producer was removed from the abdomen using empty clip appliers. I went to the foot of the bed to place the powered Ethicon 29 mm stapler via the rectum. The anvil and stapler were mated for 1 minute. The doughnuts were intact on both sides and thick. An intraoperative leak test was performed as I inserted the colonoscope to the anastomosis. Endoscopic images were obtained. Irrigation was placed in the pelvis and no air leaks were identified. Irrigation fluid was aspirated from the pelvis until dry. I went back to the console. All sponges and needles were removed from the abdominal cavity. The robot was undocked. I re-scrubbed into the case. Via the left upper quadrant port, the sigmoid colon was removed using 15 mm Endo Catch bag. All sponges were removed from the abdominal cavity. The left upper quadrant incision was widened to 3-cm. No contamination had occurred throughout the case. The fascial defect was oversewn using 0 Vicryl and a Placido Hayes. Next all pneumoperitoneum was evacuated from the abdominal cavity. The 8-mm trocar sites were reapproximated using 4-0 Monocryl in an interrupted subcuticular fashion. Local anesthetic was infiltrated to all wounds for postop analgesia. All incisions were also cleansed with diluted hydrogen peroxide. An ScaleIO advance surgical dressing was placed over the colon extraction site. Liquid glue was applied to the rest of the skin incisions. The patient had tolerated the procedure well. The patient was extubated successfully. The patient was transferred to the postanesthesia care unit in stable condition. Intraoperative findings were described in detail to the patient's family.
--- NOTE | 2022-02-20 17:46 | P.PN ---
Progress Note - Text Progress Note Date: 02/20/22 Family bedside. Patient denies any pain. She is resting comfortably. May have clear liquid diet.
[2022-02-20] MEDS: KETOROLAC 15 MG/ML 1 ML VIAL IVP SCH ×2 (18:18→23:17)
[2022-02-20] MEDS: ACETAMINOPHEN TAB 325 MG TAB PO SCH ×2 (18:18→23:18)
[2022-02-20] MEDS: HEPARIN SODIUM,PORCINE/PF 5,000 UNIT/0.5 ML SYRINGE SQ SCH (20:20)
[2022-02-20] MEDS: ALVIMOPAN 12 MG CAPSULE PO SCH (20:21)
[2022-02-21] MEDS: KETOROLAC 15 MG/ML 1 ML VIAL IVP SCH ×2 (06:01→12:58)
[2022-02-21] MEDS: ACETAMINOPHEN TAB 325 MG TAB PO SCH ×2 (06:01→12:58)
[2022-02-21] MEDS: LEVOTHYROXINE 50 MCG TAB PO SCH (06:01)
[2022-02-21] MEDS: LACTATED RINGERS 1,000 ML IV SCH (06:02)
[2022-02-21] MEDS: HEPARIN SODIUM,PORCINE/PF 5,000 UNIT/0.5 ML SYRINGE SQ SCH (07:35)
[2022-02-21] MEDS: ALVIMOPAN 12 MG CAPSULE PO SCH (07:36)
[2022-02-21] MEDS: METOPROLOL SUCCINATE (ER) 25 MG TAB.ER.24H PO SCH (07:36)
[2022-02-21 07:48] VITALS: BP 110/60; PULSE 56; RESP 17; TEMP 98.7
[2022-02-21 08:44] LABS: Basophils # (A) 0.01 X 10*3/uL (0.00-0.10); Basophils % (A) 0.1 %; Eosinophils # (A) 0.01 X 10*3/uL (0.04-0.35); Eosinophils % (A) 0.1 %; HCT 33.9 % (37.2-46.3); HGB 11.6 g/dL (12.0-15.0); Immature Grans, Automated 0.2 %; Lymphocytes # (A) 1.05 X 10*3/uL (0.90-5.00); Lymphocytes % (A) 12.2 %; MCH 30.5 pg (27.0-32.0); MCHC 34.2 g/dL (32.0-37.0); MCV 89.2 fL (80.0-97.0); Mean Platelet Volume 9.8 fL (9.5-12.2); Monocytes # (A) 0.92 X 10*3/uL (0.20-1.00); Monocytes % (A) 10.7 %; NRBC Per 100 WBC 0 /100 WBCS (0.0-0.0); Neutrophils # (A) 6.61 X 10*3/uL (1.80-7.70); Neutrophils % (A) 76.7 %; Platelet Count 258 X 10*3/uL (140-440); RDW 13.2 % (11.5-14.5); WBC 8.62 X 10*3/uL (4.50-10.00)
[2022-02-21 08:49] LABS: African American GFR (CKD) 93.5 (60.0-200.0); BUN/Creat Ratio 12.14 Ratio (12.00-20.00); Blood Urea Nitrogen 8.5 mg/dL (9.0-27.0); Calcium 8.4 mg/dL (8.7-10.3); Magnesium 1.6 mg/dL (1.5-2.4); Non-African American GFR(CKD) 80.7 (60.0-200.0); Phosphorus 2.2 mg/dL (2.4-5.1); Potassium 4.1 mmol/L (3.5-5.5)
[2022-02-21] MEDS: D5-0.45% NACL WITH KCL 20MEQ/L 1,000 ML IV SCH (09:07)
[2022-02-21] MEDS: PANTOPRAZOLE 40 MG/10 ML VIAL IV SCH (09:07)
--- NOTE | 2022-02-21 13:50 | P.DS ---
Providers Date of admission: 02/19/22 12:33 Expected date of discharge: 02/21/22 Attending physician: Teresa Britton Consults: 02/20/22 08:50 Consult Physician Routine Consulting Provider: [facility] Consult Reason/Comments: Abdominal block Do you want consulting provider notified?: Yes Primary care physician: [facility] Course: POSTOPERATIVE DIAGNOSES: 1. Sigmoid diverticulitis with large bowel obstruction 2. Hypertensive heart disease 3. Hypothyroidism 4. Chronic constipation 5. Migraines 6. Diaphragmatic hiatal hernia COURSE: The patient 81-year-old female status post sigmoid colectomy following a lower anterior resection for sigmoid diverticulosis with stricture. Postoperatively, pain was well controlled. She denied nausea with regular diet. She was voiding spontaneously. Discharge instructions reviewed with her including her at bedside. Close follow-up discharge was reviewed as well. All questions were addressed. Procedures: OPERATION: 1. Robotic-assisted daVinci Xi sigmoid colectomy with low anterior resection using 29 mm Ethicon powered stapler 2. Robotic-assisted daVinci Xi laparoscopic lysis of adhesions 3. Intraoperative colonoscopy used for sigmoidoscopy Anesthesia: GETA, local, regional Estimated Blood Loss (ml): 10 Pathology: 1. Sigmoid colon 2. EEA donuts 3. Proximal colotomy Condition: stable Disposition: floor COMPLICATIONS: None. Operative Findings: 1. Redundant sigmoid colon with stricture resected 2. Anastomosis with EEA stapler 29 mm 3. No tension or torsion along the anastomosis 4. Doughnuts thick and both sides and viable 5. Moderately redundant sigmoid colon without tension at anastomosis 6. Negative leak test with viable anastomosis. Patient Condition at Discharge: Good Plan - Discharge Summary Discharge Rx Participant: No New Discharge Prescriptions: New Ibuprofen [Motrin] 600 mg PO Q8HR PRN #30 tab PRN Reason: Pain Acetaminophen Tab [Tylenol Tab] 1,000 mg PO Q6HR PRN #30 tablet PRN Reason: Pain Lactulose [Cephulac] 30 gm PO DAILY #400 ml Simethicone 40 mg/0.6 ml Drops [Mylicon Drops] 40 mg PO Q6HR PRN #30 ml PRN Reason: Abdominal Distention Continue Loratadine-Pseudoeph 5-120 mg [Claritin-D 12 Hour] 1 tab PO DAILY Metoprolol Succinate (ER) [Toprol XL] 25 mg PO DAILY Cholecalciferol [Vitamin D3 (25 Mcg = 1000 Iu)] 50 mcg PO DAILY Levothyroxine Sodium [Synthroid] 50 mcg PO DAILY Senna Ak Chin 125 mg PO HS PRN PRN Reason: Constipation Lactulose 30 ml PO DIRECTED ALPRAZolam [Xanax] 0.25 mg PO TID PRN PRN Reason: Anxiety Acetaminophen Tab [Tylenol] 500 mg PO Q6H PRN PRN Reason: Pain Bio Cholesterol Wellness 1 cap PO DAILY Discharge Medication List Loratadine-Pseudoeph 5-120 mg [Claritin-D 12 Hour] 1 tab PO DAILY 09/15/14 [History] ALPRAZolam [Xanax] 0.25 mg PO TID PRN 07/22/21 [History] Metoprolol Succinate (ER) [Toprol XL] 25 mg PO DAILY 07/22/21 [History] Acetaminophen Tab [Tylenol] 500 mg PO Q6H PRN 02/17/22 [History] Bio Cholesterol Wellness 1 cap PO DAILY 02/17/22 [History] Cholecalciferol [Vitamin D3 (25 Mcg = 1000 Iu)] 50 mcg PO DAILY 02/17/22 [History] Lactulose 30 ml PO DIRECTED 02/17/22 [History] Levothyroxine Sodium [Synthroid] 50 mcg PO DAILY 02/17/22 [History] Senna Ak Chin 125 mg PO HS PRN 02/17/22 [History] Acetaminophen Tab [Tylenol Tab] 1,000 mg PO Q6HR PRN #30 tablet 02/21/22 [Rx] Ibuprofen [Motrin] 600 mg PO Q8HR PRN #30 tab 02/21/22 [Rx] Lactulose [Cephulac] 30 gm PO DAILY #400 ml 02/21/22 [Rx] Simethicone 40 mg/0.6 ml Drops [Mylicon Drops] 40 mg PO Q6HR PRN #30 ml 02/21/22 [Rx] Follow up Appointment(s)/Referral(s): Teresa Britton MD [STAFF PHYSICIAN] - 02/25/22 (TELEHEALTH 02/25/22) Patient Instructions/Handouts: Hemorrhoids (DC), Diverticulosis Diet (GEN) Activity/Diet/Wound Care/Special Instructions: EXPECT BOWEL MOVEMENT WITH BLOOD FOR 1 WEEK TAKE LAXATIVE FOR CONSTIPATION AFTER 4 DAYS, 02/25/22 Wear abdominal binder for comfort. No lifting over 4 pounds in 4 weeks Mar 22August shower. No bath tub soaks for two weeks until Mar 07 Avoid steak, tough meats and seeds such as raspberry seeds. See diverticulitis, low fiber, colectomy diet Use Tylenol and ibuprofen scheduled for the next 24-48 hours for best pain relief. Use ice along incisions for today to prevent swelling. Discharge Disposition: HOME SELF-CARE
--- NOTE | 2022-02-23 08:54 | P.PN ---
Progress Note - Text Progress Note Date: 02/23/22 Patient called at home since discharge. Patient reports that she is passing flatus and tolerating soft diet. No new complaints. Her pain is well- controlled. Follow telehealth in 2-3 days described. Patient encouraged to call back sooner for any complaints.
--- NOTE | 2022-02-24 09:08 | CDI ---
Documentation Clarification Form Date: 02/24/2022 08:58:00 AM From: Noemi Payton Admit Date: 02/19/2022 12:33:00 PM Patient Name: Deborah Jurado Visit Number: [id number] Discharge Date: 02/21/2022 02:44:00 PM ATTENTION: The Clinical Documentation Specialists (CDI) and [facility] Coding Staff appreciate your assistance in clarifying documentation. Please respond to the clarification below the line at the bottom and electronically sign. The CDI & [facility] Coding staff will review the response and follow-up if needed. Please note: Queries are made part of the Legal Health Record. If you have any questions, please contact the author of this message via ITS. Dr. Teresa Britton Robotic assisted daVinci Xi laparoscopic lysis of adhesions is documented in the Operative Report on . Please clarify if patient had extensive adhesions or did not have extensive adhesions Additional clarification regarding the procedure is requested. History/Risk factors: Diverticulitis and diverticulosis. Hx of hysterectomy Pre-Operative Diagnosis: Sigmoid diverticulitis with large bowel obstruction. Postoperative Diagnosis: Sigmoid diverticulitis with large bowel obstruction. Clinical Indicators: Treatment: Lysis of adhesions Please clarify the following: [remove unnecessary options] [X ] Lysis of extensive adhesions [ ] Lysis of adhesions not extensive [facility] 02/24/[address] [facility]
== END 2022-02-21 14:44 | disposition home or self-care (01) | DRG 329 ==
LOC: ORWHC2ENDO 09:27 → 4SSUR 11:56 → ORWHC2ENDO 12:33 → 4SSUR 13:56
PROVIDERS: ADMIT Surgery Plastic and Reconstructive Surgery; ATTEND Surgery Plastic and Reconstructive Surgery
PROC: 0DBK8ZX Excision of Ascending Colon, Via Natural or Artificial Opening Endoscopic, Diagnostic (ICD-10-PCS; 2022-02-19)
PROC: 8E0W4CZ Robotic Assisted Procedure of Trunk Region, Percutaneous Endoscopic Approach (ICD-10-PCS; principal; 2022-02-20 10:45)
PROC: 0DJD8ZZ Inspection of Lower Intestinal Tract, Via Natural or Artificial Opening Endoscopic (ICD-10-PCS; principal; 2022-02-20 10:45)
PROC: 0DTN4ZZ Resection of Sigmoid Colon, Percutaneous Endoscopic Approach (ICD-10-PCS; principal; 2022-02-20 10:45)
PROC: 0DNW4ZZ Release Peritoneum, Percutaneous Endoscopic Approach (ICD-10-PCS; principal; 2022-02-20 10:45)
DX: K57.32 Diverticulitis of large intestine without perforation or abscess without bleeding (principal); K56.2 Volvulus; K56.600 Partial intestinal obstruction, unspecified as to cause; K57.30 Diverticulosis of large intestine without perforation or abscess without bleeding; K44.9 Diaphragmatic hernia without obstruction or gangrene; K66.0 Peritoneal adhesions (postprocedural) (postinfection); I11.9 Hypertensive heart disease without heart failure; K64.8 Other hemorrhoids; E03.9 Hypothyroidism, unspecified; G43.909 Migraine, unspecified, not intractable, without status migrainosus; K59.09 Other constipation; M19.90 Unspecified osteoarthritis, unspecified site; D12.2 Benign neoplasm of ascending colon; Z79.890 Hormone replacement therapy; Z87.891 Personal history of nicotine dependence; Z88.0 Allergy status to penicillin; Z88.2 Allergy status to sulfonamides; Z91.012 Allergy to eggs; Z87.01 Personal history of pneumonia (recurrent)
CPT/HCPCS: 45380; 64999; 71045; 80048; 80053; 83735; 84100; 85025; 86850; 86900; 86901; 88305; 88307; 93005

== ENCOUNTER → 2022-10-13 | Outpatient (CLI) | payer MEDICARE ==
--- NOTE | 2022-10-13 09:24 | US ---
EXAMINATION TYPE: US abdomen limited DATE OF EXAM: 10/13/2022 COMPARISON: NONE CLINICAL INDICATION: Female, 82 years old with history of R19.00 PELVIC SWELLING; area of RLQ swellin g noted prior to and after colon surgery TECHNIQUE: several sonographic images obtained at area of concern FINDINGS: Anechoic free fluid collection noted at area of concern anterior to peristalsing bowel seg ment: 5.0 x 1.2 x 5.1cm area conforms to moving bowel and is not contained within a capsule. IMPRESSION: 1. Fluid collection within the abdomen of uncertain etiology. Adjacent peristalsing bowel is identifi ed.
[2022-10-13 16:29] LABS: ALT 21 U/L (8-44); AST 30 U/L (13-35); Albumin 4.4 d/dL (3.8-4.9); Alkaline Phosphatase 77 U/L (41-126); Blood Urea Nitrogen 12.6 mg/dL (9.0-27.0); Carbon Dioxide 25.6 mmol/L (21.6-31.8); Chloride 108 mmol/L (96-109); Chol/HDL Ratio 3.47 Ratio; Glucose 87 mg/dL (70-110); LDL Cholesterol,Calculated 119.6 mg/dL (0.0-131.0); Potassium 4.9 mmol/L (3.5-5.5); Sodium 143 mmol/L (135-145); T4, Free (Free Thyroxine) 1.62 ng/dL (0.80-1.80); Total Bilirubin 0.5 mg/dL (0.3-1.2); Total Protein 6.4 d/dL (6.2-8.2)
[2022-10-13 18:16] LABS: Basophils # (A) 0.08 X 10*3/uL (0.00-0.10); Basophils % (A) 1.8 %; Eosinophils # (A) 0.22 X 10*3/uL (0.04-0.35); Eosinophils % (A) 4.9 %; HCT 42.6 % (37.2-46.3); HGB 14.2 d/dL (12.0-15.0); Lymphocytes # (A) 1.06 X 10*3/uL (0.90-5.00); Lymphocytes % (A) 23.8 %; MCH 31.1 pg (27.0-32.0); MCHC 33.3 d/dL (32.0-37.0); MCV 93.4 FL (80.0-97.0); Mean Platelet Volume 9.9 FL (9.5-12.2); Monocytes # (A) 0.36 X 10*3/uL (0.20-1.00); Monocytes % (A) 8.1 %; NRBC Per 100 WBC 0 X 10*3/uL (0.00-0.01); Neutrophils # (A) 2.72 X 10*3/uL (1.80-7.70); Neutrophils % (A) 61.2 %; Platelet Count 296 X 10*3/uL (140-440); RBC 4.56 X 10*6/uL (4.10-5.20); RDW 13.2 % (11.5-14.5); WBC 4.45 X 10*3/uL (4.50-10.00)
== END | disposition home or self-care (01) ==
LOC: RADUSWWP 08:31
PROVIDERS: ATTEND Surgery Plastic and Reconstructive Surgery
DX: R19.09 Other intra-abdominal and pelvic swelling, mass and lump (principal)
CPT/HCPCS: 76705; 80053; 80061; 84439; 84443; 85025

== ENCOUNTER → 2022-10-13 | Outpatient (CLI) | payer MEDICARE | END | disposition home or self-care (01) | LOC: LABWHC1 08:25 | PROVIDERS: ATTEND Internal Medicine | DX: Z53.9 Procedure and treatment not carried out, unspecified reason (principal) ==

== ENCOUNTER 2022-10-22 06:44 | Day surgery (SDC) | payer MEDICARE ==
--- NOTE | 2022-10-22 06:23 | P.GSHP ---
History of Present Illness H&P Date: 10/22/22 CHIEF COMPLAINT: Colon screen HISTORY OF PRESENT ILLNESS: The patient is a 82-year-old female who presents for colon screen. Lower endoscopy was offered for further evaluation and management. PAST MEDICAL HISTORY: Please see list. PAST SURGICAL HISTORY: Please see list. MEDICATIONS: Please see list. ALLERGIES: Please see list. SOCIAL HISTORY: No illicit drug use FAMILY HISTORY: No reports of Crohn disease or ulcerative colitis. REVIEW OF ORGAN SYSTEMS: CONSTITUTIONAL: No reports of fevers or chills. PHYSICAL EXAM: VITAL SIGNS: Stable GENERAL: Well-developed pleasant in no acute distress. HEENT: No scleral icterus. Extraocular movements grossly intact. Moist buccal mucosa. NECK: Supple without lymphadenopathy. CHEST: Unlabored respirations. Equal bilateral excursions. CARDIOVASCULAR: Regular rate and rhythm. Distal 2+ pulses. ABDOMEN: Soft, nontender, nondistended. MUSCULOSKELETAL: No clubbing, cyanosis, or edema. ASSESSMENT: 1. Colon screen. PLAN: 1. 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 pt has had some abdominal discomfort around her waist and some bloating. History of Any Multi-Drug Resistant Organisms: None Reported Past Surgical History: Bowel Resection, Hysterectomy Additional Past Surgical History / Comment(s): vein stripping, rectal surgery for rectal fissure & hemorrhoids, cataracts removed, sinus surg., surg. for tubal preganancy, colon resection 02/20/22 Past Anesthesia/Blood Transfusion Reactions: Family Hisory of Malignant Hyperthermia Additional Past Anesthesia/Blood Transfusion Reaction / Comment(s): grandson has malignant hyperthermia & TAR syndrome. In [facility] in . 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 no one else in family tested Smoking Status: Former smoker - Past Family History Father Family Medical History: Pulmonary Embolus Mother Family Medical History: No Reported History Medications and Allergies Home Medications Medication Instructions Recorded Confirmed Type Loratadine-Pseudoeph 5-120 mg 1 tab PO DAILY 09/15/14 10/17/22 History [Claritin-D 12 Hour] ALPRAZolam [Xanax] 0.25 mg PO HS 07/22/21 10/17/22 History Metoprolol Succinate (ER) [Toprol 25 mg PO DAILY 07/22/21 10/17/22 History XL] Bio Cholesterol Wellness 1 cap PO DAILY 02/17/22 10/17/22 History Levothyroxine Sodium [Synthroid] 50 mcg PO DAILY 02/17/22 10/17/22 History Ibuprofen [Motrin] 600 mg PO Q8HR PRN #30 tab 02/21/22 10/17/22 Rx Acetaminophen [Tylenol] 325 mg PO DIRECTED PRN 10/17/22 10/17/22 History Otc Perdiem Laxative 1 tab PO Q48H 10/17/22 10/17/22 History Allergies Allergy/AdvReac Type Severity Reaction Status Date / Time egg Allergy eye Verified 10/17/22 13:29 swelling Penicillins Allergy Dyspnea, Verified 10/17/22 13:29 lips swelled, rapid heart rate Sulfa (Sulfonamide Allergy Anaphylaxis Verified 10/17/22 13:29 Antibiotics)
[~2022-10-22 06:44] MED LIST changes: -Antibiotics per Pharmacy 1 EACH MISC MISCELLANE PRN; -HEPARIN SODIUM,PORCINE/PF 5,000 UNIT/0.5 ML SYRINGE SQ PRN
[2022-10-22 07:06] VITALS: RESP 16; TEMP 97.9
[2022-10-22] MEDS: LACTATED RINGERS 1,000 ML IV SCH ×2 (07:24→07:38)
[2022-10-22] MEDS ORDERED: LIDOCAINE 2% INJ 20 MG/ML (2 ML VIAL) ONE (07:42)
[2022-10-22] MEDS ORDERED: PROPOFOL 10 MG/ML 20 ML VIAL IV ONE (07:42)
[2022-10-22 08:17] VITALS: BP 139/80; PULSE 70
--- NOTE | 2022-10-22 08:19 | P.PCN ---
Date of Procedure: 10/22/22 Description of Procedure: PREOPERATIVE DIAGNOSIS: Change in bowel habit Sigmoid colectomy POSTOPERATIVE DIAGNOSIS: Severe pandiverticulosis OPERATION: Colonoscopy to the cecum, ileocecal valve and appendiceal orifice. SURGEON: Teresa Britton MD. ANESTHESIA: MAC. INDICATIONS: The patient is a 82-year-old female who presents for colonoscopy screening. Benefits and risks were described and informed consent was obtained. DESCRIPTION OF PROCEDURE: The patient had undergone Sutab prep. The patient had been brought into the operating room and laid in the left lateral decubitus position. After adequate intravenous sedation, the rectum was examined with 2% lidocaine jelly. External hemorrhoids were encountered. The rectal tone was within normal limits. No lesions were palpated in the rectal vault. An Olympus colonoscope was advanced until the cecum, ileocecal valve and appendiceal orifice were clearly viewed. The prep was excellent. Severe pandiverticulosis was encountered. No colonic polyps were found. No evidence of focal colitis was found. Retroflexion of the scope demonstrated grade 3 internal hemorrhoids without active bleeding or inflammation. The colon was desufflated. The patient had tolerated the procedure well. Withdrawal time was over 6 minutes. FINDINGS: Aronchick preparation quality scale 1 (1-5) Internal hemorrhoids, grade 3 External prolapsed hemorrhoids, grade 3 Severe pandiverticulosis No arteriovenous malformations. No adenomatous polyps. No focal colitis. RECOMMENDATIONS: Lower endoscopy as needed Recommend fiber diet 25 g daily or more Plan - Discharge Summary Discharge Rx Participant: No New Discharge Prescriptions: Continue Loratadine-Pseudoeph 5-120 mg [Claritin-D 12 Hour] 1 tab PO DAILY Metoprolol Succinate (ER) [Toprol XL] 25 mg PO DAILY Levothyroxine Sodium [Synthroid] 50 mcg PO DAILY Ibuprofen [Motrin] 600 mg PO Q8HR PRN #30 tab PRN Reason: Pain Otc Perdiem Laxative 1 tab PO Q48H ALPRAZolam [Xanax] 0.25 mg PO HS Bio Cholesterol Wellness 1 cap PO DAILY Acetaminophen [Tylenol] 325 mg PO DIRECTED PRN PRN Reason: Pain Discharge Medication List Loratadine-Pseudoeph 5-120 mg [Claritin-D 12 Hour] 1 tab PO DAILY 09/15/14 [History] ALPRAZolam [Xanax] 0.25 mg PO HS 07/22/21 [History] Metoprolol Succinate (ER) [Toprol XL] 25 mg PO DAILY 07/22/21 [History] Bio Cholesterol Wellness 1 cap PO DAILY 02/17/22 [History] Levothyroxine Sodium [Synthroid] 50 mcg PO DAILY 02/17/22 [History] Ibuprofen [Motrin] 600 mg PO Q8HR PRN #30 tab 02/21/22 [Rx] Acetaminophen [Tylenol] 325 mg PO DIRECTED PRN 10/17/22 [History] Otc Perdiem Laxative 1 tab PO Q48H 10/17/22 [History] Follow up Appointment(s)/Referral(s): Teresa Britton MD [STAFF PHYSICIAN] - 12/02/22 10:00 am Patient Instructions/Handouts: Diverticulosis Diet (GEN), Diverticulosis (ED) Activity/Diet/Wound Care/Special Instructions: Colonoscopy as needed Discharge Disposition: HOME SELF-CARE
== END 2022-10-22 09:00 | disposition home or self-care (01) ==
LOC: ORWHC2ENDO 06:44
PROVIDERS: ATTEND Surgery Plastic and Reconstructive Surgery
DX: Z12.11 Encounter for screening for malignant neoplasm of colon (principal); K57.30 Diverticulosis of large intestine without perforation or abscess without bleeding; K64.2 Third degree hemorrhoids; K64.4 Residual hemorrhoidal skin tags; I10 Essential (primary) hypertension; E78.5 Hyperlipidemia, unspecified; M19.90 Unspecified osteoarthritis, unspecified site; E07.9 Disorder of thyroid, unspecified; Z82.49 Family history of ischemic heart disease and other diseases of the circulatory system; Z79.899 Other long term (current) drug therapy; Z87.891 Personal history of nicotine dependence; Z79.890 Hormone replacement therapy; Z88.0 Allergy status to penicillin; Z88.2 Allergy status to sulfonamides
CPT/HCPCS: G0121; J2704; J2001; 45378

== ENCOUNTER → 2023-02-06 | Outpatient (CLI) | payer MEDICARE ==
--- NOTE | 2023-02-06 11:31 | MM ---
Reason for Exam: Screening (asymptomatic). Last mammogram was performed 1 year(s) and 3 month(s) ago. Patient History: Menarche at age 13. First Full-Term at age 15. Left ovary removed at age 29. Right ovary removed at age 17. Hysterectomy at age 29. Postmenopausal. Risk Values: Elba 5 year model risk: 1.0%. NCI Lifetime model risk: 1.2%. Prior Study Comparison: 06/09/2019 Bilateral Screening Mammogram, [facility]. 08/13/2020 Bilateral Screening Mammogram, [facility]. 10/31/2021 Bilateral MG 3D screening mammo w/cad, [facility]. Tissue Density: The breast tissue is heterogeneously dense. This may lower the sensitivity of mammography. Findings: Analyzed By CAD. There is no suspicious group of microcalcifications or new suspicious mass in either breast. Stable bilateral chronic nodularity and vascular calcifications. No significant change from prior examination. Overall Assessment: Benign, BI-RAD 2 Management: Screening Mammogram of both breasts in 1 year. A clinical breast exam by your physician is recommended on an annual basis and results should be correlated with mammographic findings. Note on Elba scores and lifetime risk: 1. A Elba score greater than 3% is considered moderate risk. If this is the case, consider specialist referral to assess eligibility for a risk reducing agent. If overall lifetime risk for the development of breast cancer is 20% or higher, the patient may qualify for future screening with alternating mammogram and breast MRI. Electronically signed and approved by: William Cain D.O.
== END | disposition home or self-care (01) ==
LOC: RADMAMWWP 10:50
PROVIDERS: ATTEND Obstetrics & Gynecology
DX: Z12.31 Encounter for screening mammogram for malignant neoplasm of breast (principal); Z78.0 Asymptomatic menopausal state
CPT/HCPCS: 77063; 77067

== ENCOUNTER 2023-05-24 14:26 | Emergency (ER) | payer MEDICARE ==
[2023-05-24 15:03] VITALS: TEMP 98.2
--- NOTE | 2023-05-24 15:20 | ED ---
Neck Injury/Pain HPI - General Chief Complaint: Neck Pain/Injury Stated Complaint: Upper right back pain Time Seen by Provider: 05/24/23 14:54 Source: patient, RN notes reviewed Mode of arrival: wheelchair Limitations: no limitations - History of Present Illness Initial Comments: 83-year-old female presents emergency department with chief complaint of right shoulder pain. Patient states she woke up this morning. She states it is worse with movement. Patient states that she denies any injury she states she went to make the bed and she was unable to do this because of discomfort. She states it is around her right shoulder blade does not radiate to the front of her chest denies any shortness of breath no chest pain denies fevers or chills she states she has known gallbladder issue but states she has no abdominal pain she has had recent cardiac clearance for this because her surgeon Dr. Varela told her to have clearance just in case she needed to have surgery - Related Data Home Medications Medication Instructions Recorded Confirmed Loratadine-Pseudoeph 5-120 mg 1 tab PO DAILY 09/15/14 10/22/22 [Claritin-D 12 Hour] ALPRAZolam [Xanax] 0.25 mg PO HS 07/22/21 10/22/22 Metoprolol Succinate (ER) [Toprol 25 mg PO DAILY 07/22/21 10/22/22 XL] Bio Cholesterol Wellness 1 cap PO DAILY 02/17/22 10/17/22 Levothyroxine Sodium [Synthroid] 50 mcg PO DAILY 02/17/22 10/22/22 Acetaminophen [Tylenol] 325 mg PO DIRECTED PRN 10/17/22 10/22/22 Otc Perdiem Laxative 1 tab PO Q48H 10/17/22 10/22/22 Previous Rx's Medication Instructions Recorded Ibuprofen [Motrin] 600 mg PO Q8HR PRN #30 tab 02/21/22 methocarbamoL [Robaxin] 500 mg PO TID PRN #15 tab 05/24/23 Allergies Allergy/AdvReac Type Severity Reaction Status Date / Time egg Allergy eye Verified 10/22/22 07:06 swelling Penicillins Allergy Dyspnea, Verified 10/22/22 07:06 lips swelled, rapid heart rate Sulfa (Sulfonamide Allergy Anaphylaxis Verified 10/22/22 07:06 Antibiotics) Review of Systems ROS Statement: Those systems with pertinent positive or pertinent negative responses have been documented in the HPI. ROS Other: All systems not noted in ROS Statement are negative. 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 pt has had some abdominal discomfort around her waist and some bloating. History of Any Multi-Drug Resistant Organisms: None Reported Past Surgical History: Bowel Resection, Hysterectomy Additional Past Surgical History / Comment(s): vein stripping, rectal surgery for rectal fissure & hemorrhoids, cataracts removed, sinus surg., surg. for tubal preganancy, colon resection 02/20/22 Past Anesthesia/Blood Transfusion Reactions: Family Hisory of Malignant Hyperthermia Additional Past Anesthesia/Blood Transfusion Reaction / Comment(s): grandson has malignant hyperthermia & TAR syndrome. In [facility] in . 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 no one else in family tested Past Psychological History: No Psychological Hx Reported Smoking Status: Former smoker - Past Family History Father Family Medical History: Pulmonary Embolus Mother Family Medical History: No Reported History General Exam Limitations: no limitations General appearance: alert, in no apparent distress Head exam: Present: atraumatic, normocephalic, normal inspection Eye exam: Present: normal appearance, PERRL, EOMI. Absent: scleral icterus, conjunctival injection, periorbital swelling Respiratory exam: Present: normal lung sounds bilaterally. Absent: respiratory distress, wheezes, rales, rhonchi, stridor Cardiovascular Exam: Present: regular rate, normal rhythm, normal heart sounds. Absent: systolic murmur, diastolic murmur, rubs, gallop, clicks GI/Abdominal exam: Present: soft, normal bowel sounds. Absent: distended, tende rness, guarding, rebound, rigid Extremities exam: Present: other (Full range of motion bilateral upper extremities there is pain with right shoulder range of motion) Back exam: Present: full ROM, tenderness (Right paraspinal, scapular tenderness), paraspinal tenderness. Absent: vertebral tenderness Neurological exam: Present: alert, oriented X3, reflexes normal. Absent: motor sensory deficit Course Vital Signs 05/24/23 05/24/23 14:41 16:44 Temperature 98.2 F Pulse Rate 66 58 L Respiratory 16 18 Rate Blood Pressure 183/100 168/82 O2 Sat by Pulse 100 96 Oximetry Medical Decision Making - Medical Decision Making Was pt. sent in by a medical professional or institution (, [facility]WIN, BEET END SUPERVISOR, urgent care, hospital, or chcf...) When possible be specific @ -No Did you speak to anyone other than the patient for history (EMS, parent, family, police, friend...)? What history was obtained from this source @ -No Did you review nursing and triage notes (agree or disagree)? Why? @ -I reviewed and agree with nursing and triage notes Were old charts reviewed (outside hosp., previous admission, EMS record, old EKG, old radiological studies, urgent care reports/EKG's, ch[facility] records)? Report findings @ -No old charts were reviewed Differential Diagnosis (chest pain, altered mental status, abdominal pain women, abdominal pain men, vaginal bleeding, weakness, fever, dyspnea, syncope, headac he, dizziness, GI bleed, back pain, seizure, CVA, palpatations, mental health, musculoskeletal)? @ -[Differential Back Pain: Strain, zoster, cauda equina syndrome, epidural abscess, vertebral osteomy elitis, discitis, fracture, subluxation, disc herniation, DJD, spinal stenosis, dissection, AAA, pancreatitis, peptic ulcer disease, pyelonephritis, kidney stone, this is not meant to be an all-inclusive list. EKG interpreted by me (3pts min.). @ -As above X-rays interpreted by me (1pt min.). @ -[Chest x-ray shows no acute cardiopulmonary process CT interpreted by me (1pt min.). @ -None done U/S interpreted by me (1pt. min.). @ -None done What testing was considered but not performed or refused? (CT, X-rays, U/S, labs)? Why? @ -None What meds were considered but not given or refused? Why? @ -None Did you discuss the management of the patient with other professionals (professionals i.e. DARWIN Ken, BEET END SUPERVISOR, lab, RT, psych nurse, social service manager, cardiac sonographer, teacher, operations officer afloat, case resource manager)? Give summary @ -No Was smoking cessation discussed for >3mins.? @ -No Was critical care preformed (if so, how long)? @ -No Were there social determinants of health that impacted care today? How? (Homelessness, low income, unemployed, alcoholism, drug addiction, transportation, low edu. Level, literacy, decrease access to med. care, assisted, rehab)? @ -No Was there de-escalation of care discussed even if they declined (Discuss DNR or withdrawal of care, Hospice)? DNR status @ -No What co-morbidities impacted this encounter? (DM, HTN, Smoking, COPD, CAD, Cancer, CVA, ARF, Chemo, Hep., AIDS, mental health diagnosis, sleep apnea, morbid obesity)? @ -None Was patient admitted / discharged? Hospital course, mention meds given and route, prescriptions, significant lab abnormalities, going to OR and other pertinent info. @ -[Discharge patient has reproducible paraspinal tenderness, scapular tenderness patient full workup which was negative patient is feels improved at this time will be discharged in stable condition. Undiagnosed new problem with uncertain prognosis? @ -No Drug Therapy requiring intensive monitoring for toxicity (Heparin, Nitro, Insulin, Cardizem)? @ -No Were any procedures done? @ -No Diagnosis/symptom? @ -[Back pain , spasm Acute, or Chronic, or Acute on Chronic? @ -Acute Uncomplicated (without systemic symptoms) or Complicated (systemic symptoms)? @ -[Uncomplicated Side effects of treatment? @ -[No Exacerbation, Progression, or Severe Exacerbation? @ -No Poses a threat to life or bodily function? How? (Chest pain, USA, PR, pneumonia, PE, COPD, DKA, ARF, appy, cholecystitis, CVA, Diverticulitis, Homicidal, Suicidal, threat to staff... and all critical care pts) @ -No - Lab Data Result diagrams: 05/24/23 15:29 05/24/23 15:29 Lab Results 05/24/23 05/24/23 05/24/23 Range/Units 15:29 15: 15: WBC 6.1 (3.8-10.6) k/uL RBC 4.61 (3.80-5.40) m/uL Hgb 14.5 (11.4-16.0) gm/dL Hct 41.9 (34.0-46.0) % MCV 90.8 (80.0-100.0) fL MCH 31.4 (25.0-35.0) pg MCHC 34.5 (31.0-37.0) g/dL RDW 13.0 (11.5-15.5) % Plt Count 314 (150-450) k/uL MPV 7.6 Neutrophils % 70 % Lymphocytes % 21 % Monocytes % 6 % Eosinophils % 1 % Basophils % 1 % Neutrophils # 4.3 (1.3-7.7) k/uL Lymphocytes # 1.3 (1.0-4.8) k/uL Monocytes # 0.4 (0-1.0) k/uL Eosinophils # 0.1 (0-0.7) k/uL Basophils # 0.0 (0-0.2) k/uL PT 10.6 (10.0-12.5) sec INR 1.0 (<1.2) APTT 23.6 (22.0-30.0) sec Sodium 139 (137-145) mmol/L Potassium 3.9 (3.5-5.1) mmol/L Chloride 106 (98-107) mmol/L Carbon Dioxide 26 (22-30) mmol/L Anion Gap 7 mmol/L BUN 11 (7-17) mg/dL Creatinine 0.69 (0.52-1.04) mg/dL Est GFR (CKD-EPI)AfAm >90 (>60 ml/min/1.73 sqM) Est GFR (CKD-EPI)NonAf 80 (>60 ml/min/1.73 sqM) Glucose 92 (74-99) mg/dL Calcium 9.7 (8.4-10.2) mg/dL Magnesium 1.9 (1.6-2.3) mg/dL Total Bilirubin 0.6 (0.2-1.3) mg/dL AST 31 (14-36) U/L ALT 16 (4-34) U/L Alkaline Phosphatase 63 (38-126) U/L Troponin I (0.000-0.034) ng/mL Total Protein 6.6 (6.3-8.2) g/dL Albumin 4.1 (3.5-5.0) g/dL 05/24/23 Range/Units 15:29 WBC (3.8-10.6) k/uL RBC (3.80-5.40) m/uL Hgb (11.4-16.0) gm/dL Hct (34.0-46.0) % MCV (80.0-100.0) fL MCH (25.0-35.0) pg MCHC (31.0-37.0) g/dL RDW (11.5-15.5) % Plt Count (150-450) k/uL MPV Neutrophils % % Lymphocytes % % Monocytes % % Eosinophils % % Basophils % % Neutrophils # (1.3-7.7) k/uL Lymphocytes # (1.0-4.8) k/uL Monocytes # (0-1.0) k/uL Eosinophils # (0-0.7) k/uL Basophils # (0-0.2) k/uL PT (10.0-12.5) sec INR (<1.2) APTT (22.0-30.0) sec Sodium (137-145) mmol/L Potassium (3.5-5.1) mmol/L Chloride (98-107) mmol/L Carbon Dioxide (22-30) mmol/L Anion Gap mmol/L BUN (7-17) mg/dL Creatinine (0.52-1.04) mg/dL Est GFR (CKD-EPI)AfAm (>60 ml/min/1.73 sqM) Est GFR (CKD-EPI)NonAf (>60 ml/min/1.73 sqM) Glucose (74-99) mg/dL Calcium (8.4-10.2) mg/dL Magnesium (1.6-2.3) mg/dL Total Bilirubin (0.2-1.3) mg/dL AST (14-36) U/L ALT (4-34) U/L Alkaline Phosphatase (38-126) U/L Troponin I <0.012 (0.000-0.034) ng/mL Total Protein (6.3-8.2) g/dL Albumin (3.5-5.0) g/dL - EKG Data -: EKG Interpreted by Me EKG Comments: EKG 4-60 120/bradycardia with rate of 51 NE 164 QRS 97 QT/QTc 453/431 Disposition Clinical Impression: Spasm of thoracic back muscle Disposition: HOME SELF-CARE Condition: Stable Instructions (If sedation given, give patient instructions): Thoracic Pain (ED), Muscle Spasm (ED) Additional Instructions: Please return to the Emergency Department if symptoms worsen or any other concerns. Prescriptions: methocarbamoL [Robaxin] 500 mg PO TID PRN #15 tab PRN Reason: muscle spasms Is patient prescribed a controlled substance at d/c from ED?: No Referrals: Jyoti Boateng MD [Primary Care Provider] - 1-2 days Time of Disposition: 16:20
[2023-05-24] MEDS: KETOROLAC 15 MG/ML 1 ML VIAL IVP STA (15:31)
[2023-05-24 16:06] LABS: Basophils % (A) 1 %; Eosinophils # (A) 0.1 k/uL (0-0.7); Eosinophils % (A) 1 %; HCT 41.9 % (34.0-46.0); HGB 14.5 gm/dL (11.4-16.0); Lymphocytes # (A) 1.3 k/uL (1.0-4.8); Lymphocytes % (A) 21 %; MCH 31.4 pg (25.0-35.0); MCHC 34.5 g/dL (31.0-37.0); MCV 90.8 fL (80.0-100.0); Mean Platelet Volume 7.6; Monocytes # (A) 0.4 k/uL (0-1.0); Monocytes % (A) 6 %; Neutrophils # (A) 4.3 k/uL (1.3-7.7); Neutrophils % (A) 70 %; Partial Thromboplastin Time 23.6 sec (22.0-30.0); Platelet Count 314 k/uL (150-450); Prothrombin Time 10.6 sec (10.0-12.5); RBC 4.61 m/uL (3.80-5.40); WBC 6.1 k/uL (3.8-10.6)
--- NOTE | 2023-05-24 16:06 | XR ---
EXAMINATION TYPE: XR chest 2V DATE OF EXAM: 05/24/2023 4:00 PM CLINICAL INDICATION:Female, 83 years old with history of Chest Pain; [facility] COMPARISON: Chest radiographs from 02/20/2022 TECHNIQUE: XR chest 2V Frontal and lateral views of the chest. FINDINGS: Lungs/Pleura: There is no evidence of pleural effusion, focal consolidation, or pneumothorax. Pulmonary vascularity: Unremarkable. Heart/mediastinum: Cardiomediastinal silhouette is unremarkable. Atherosclerotic calcifications are seen in the aorta. Musculoskeletal: No acute osseous pathology. IMPRESSION: No acute cardiopulmonary disease/process.
[2023-05-24 16:07] LABS: ALT 16 U/L (4-34); AST 31 U/L (14-36); African American GFR (CKD) >90 (>60 ml/min/1.73 sqM); Albumin 4.1 g/dL (3.5-5.0); Alkaline Phosphatase 63 U/L (38-126); Anion Gap 7 mmol/L; Blood Urea Nitrogen 11 mg/dL (7-17); Calcium 9.7 mg/dL (8.4-10.2); Carbon Dioxide 26 mmol/L (22-30); Chloride 106 mmol/L (98-107); Glucose 92 mg/dL (74-99); Magnesium 1.9 mg/dL (1.6-2.3); Non-African American GFR(CKD) 80 (>60 ml/min/1.73 sqM); Potassium 3.9 mmol/L (3.5-5.1); Sodium 139 mmol/L (137-145); Total Bilirubin 0.6 mg/dL (0.2-1.3); Total Protein 6.6 g/dL (6.3-8.2)
[2023-05-24] MEDS: ACET/COD 300 MG/30 MG STARTER PACK 6 TAB BTL PO STA (16:43)
[2023-05-24 16:50] VITALS: BP 168/82; PULSE 58; RESP 18
== END 2023-05-24 16:47 | disposition home or self-care (01) ==
LOC: EC 14:26
DX: M62.830 Muscle spasm of back (principal); R00.1 Bradycardia, unspecified; I10 Essential (primary) hypertension; E07.9 Disorder of thyroid, unspecified; Z87.891 Personal history of nicotine dependence; Z79.890 Hormone replacement therapy; Z79.899 Other long term (current) drug therapy; Z91.012 Allergy to eggs; Z88.0 Allergy status to penicillin; Z88.2 Allergy status to sulfonamides
CPT/HCPCS: 99284; 96374; 96375; 36415; 80053; 83735; 84484; 85025; 85610; 85730; 71046; J3360; J1885

== ENCOUNTER → 2023-06-18 | Outpatient (CLI) | payer MEDICARE ==
--- NOTE | 2023-06-18 14:25 | NM ---
EXAMINATION TYPE: NM bone scan whole body DATE OF EXAM: 06/18/2023 COMPARISON: NONE CLINICAL INDICATION: Female, 83 years old with history of M54.6 PAIN IN THORACIC SPINE; Delayed whole-body scanning was performed following the injection of 22.9 mCi Tc 99m MDP. Images acq uired 3 hours post injection. FINDINGS: Intense uptake noted to involve the approximate T6 vertebral segment felt to reflect acute fracture. Underlying lesion is not excluded. Correlate with MRI. No additional areas of intense uptake identifi ed. Degenerative uptake lower lumbar spine. IMPRESSION: Intense uptake noted to involve the approximate T6 vertebral segment felt to reflect acute fracture. Underlying lesion is not excluded. Correlate with MRI.
== END | disposition home or self-care (01) ==
LOC: RADNMMAIN 10:18
PROVIDERS: ATTEND Physical Medicine & Rehabilitation
DX: S22.050A Wedge compression fracture of T5-T6 vertebra, initial encounter for closed fracture (principal); S22.080A Wedge compression fracture of T11-T12 vertebra, initial encounter for closed fracture; M41.24 Other idiopathic scoliosis, thoracic region; M54.51 Vertebrogenic low back pain; M41.86 Other forms of scoliosis, lumbar region; M43.16 Spondylolisthesis, lumbar region
CPT/HCPCS: 78306; A9503

== ENCOUNTER → 2023-09-24 | Outpatient (CLI) | payer MEDICARE ==
--- NOTE | 2023-09-30 09:03 | BD ---
EXAMINATION TYPE: Axial Bone Density DATE OF EXAM: 09/24/2023 CLINICAL HISTORY: 83 years old Female. ICD-10 CODE: E21.3 HYPERPARATHYROIDISM, UNSPECIFIED Height: 59.8 Weight: 118 FRAX RISK QUESTIONS: History of Fracture in Adulthood: yes Secondary Osteoporosis: yes 3. Menopause before 45: yes, at 29 RISK FACTORS HISTORY OF: height loss, hx of left wrist fx 12 yrs ago Spine Fracture: yes, to T6 2023 History of Wrist Fracture: yes, 72 yo MEDICATIONS: bp meds, multivitamin, xanax, Thyroid Medications: yes, synthroid product, for yrs and yrs EXAM MEASUREMENTS: Bone mineral densitometry was performed using the [employer] [place] - 2 System. Bone mineral density as measured about the Lumbar spine is: ----- L1-L4(G/cm2): 0.667 T Score Values are as follows: ----- L1: -4.9 ----- L2: -4.9 ----- L3: -4.5 ----- L4: -3.5 ----- L1-L4: -4.3 Z Score Values are as follows: ----- L1: -2.6 ----- L2: -2.6 ----- L3: -2.3 ----- L4: -1.2 ----- L1-L4: -2.0 Bone mineral density has: Increased 3.4% since study of: 08.13.2020 Bone mineral density about the R hip (g/cm2): 0.580 Bone mineral density about the L hip (g/cm2): 0.620 T Score values are as follows: -----R Neck: -3.4 -----L Neck: -3.3 -----R Total: -3.4 -----L Total: -3.1 Z Score values are as follows: -----R Neck: -0.9 -----L Neck: -0.7 -----R Total: -0.9 -----L Total: -0.6 Bone mineral density has: Increased 2.6% since study of: 08.13.2020 FRAX%s: The graph provided illustrates a 37.5% chance for a major osteoporotic fx and a 16.7% chance for the hips probability for fx in 10 years time. IMPRESSION: Osteoporosis (T Score less than -2.5). There is increased fracture risk and therapy is usually indicated based on age. Re-Screen 1-2 years. NOTE: T-SCORE=SD OF THE YOUNG ADULT MEAN.
== END | disposition home or self-care (01) ==
LOC: RADBDWWP 13:05
PROVIDERS: ATTEND Internal Medicine
DX: M81.0 Age-related osteoporosis without current pathological fracture (principal); E21.3 Hyperparathyroidism, unspecified; Z78.0 Asymptomatic menopausal state
CPT/HCPCS: 77080

== ENCOUNTER 2024-05-06 10:17 | Emergency (ER) | payer MEDICARE ==
--- NOTE | 2024-05-06 11:14 | ED ---
General Adult HPI - General Chief complaint: Shortness of Breath Stated complaint: Back pain,NADINE Time Seen by Provider: 05/06/24 10:38 Source: patient, RN notes reviewed Mode of arrival: wheelchair Limitations: no limitations - History of Present Illness Initial comments: Patient is an 84 year old female presenting with rib pain and SOB x 5 days. She states on Thursday, her bent over to grab something and hit her curio cabinet, and she was "trying to save the cabinet", and she reached up and felt a "pop" in her ribs. She states that the pain is in her back and wraps around to the front. She states it has been a constant 9/10 pain, and it is causing trouble with getting out of bed in the morning. She states it is a stabbing pain. She states her shortness of breath is "when the pain strikes". She notes that the pain is slightly relieved with pressure and if she "puts a fist and pushes it helps me get out of bed". She states she has use lidocaine patches and has been taking Tramodol for the pain with no relief. She denies any previous injury or surgery to the area, chest pain, abdominal pain, headache, trouble breathing or pain with deep inspiration. - Related Data Home Medications Medication Instructions Recorded Confirmed Loratadine-Pseudoeph 5-120 mg 1 tab PO DAILY 09/15/14 10/22/22 [Claritin-D 12 Hour] ALPRAZolam [Xanax] 0.25 mg PO HS 07/22/21 10/22/22 Metoprolol Succinate (ER) [Toprol 25 mg PO DAILY 07/22/21 10/22/22 XL] Bio Cholesterol Wellness 1 cap PO DAILY 02/17/22 10/17/22 Levothyroxine Sodium [Synthroid] 50 mcg PO DAILY 02/17/22 10/22/22 Acetaminophen [Tylenol] 325 mg PO DIRECTED PRN 10/17/22 10/22/22 Otc Perdiem Laxative 1 tab PO Q48H 10/17/22 10/22/22 Previous Rx's Medication Instructions Recorded Ibuprofen [Motrin] 600 mg PO Q8HR PRN #30 tab 02/21/22 methocarbamoL [Robaxin] 500 mg PO TID PRN #15 tab 05/24/23 Allergies Allergy/AdvReac Type Severity Reaction Status Date / Time egg Allergy eye Verified 05/06/24 10:28 swelling Penicillins Allergy Dyspnea, Verified 05/06/24 10:28 lips swelled, rapid heart rate Sulfa (Sulfonamide Allergy Anaphylaxis Verified 05/06/24 10:28 Antibiotics) Review of Systems ROS Statement: Those systems with pertinent positive or pertinent negative responses have been documented in the HPI. ROS Other: All systems not noted in ROS Statement are negative. 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 pt has had some abdominal discomfort around her waist and some bloating. History of Any Multi-Drug Resistant Organisms: None Reported Past Surgical History: Bowel Resection, Hysterectomy Additional Past Surgical History / Comment(s): vein stripping, rectal surgery for rectal fissure & hemorrhoids, cataracts removed, sinus surg., surg. for tubal preganancy, colon resection 02/20/22 Past Anesthesia/Blood Transfusion Reactions: Family Hisory of Malignant Hyperthermia Additional Past Anesthesia/Blood Transfusion Reaction / Comment(s): grandson has malignant hyperthermia & TAR syndrome. In [facility] in . 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 no one else in family tested Past Psychological History: No Psychological Hx Reported Smoking Status: Former smoker Past Alcohol Use History: None Reported Past Drug Use History: None Reported - Past Family History Father Family Medical History: Pulmonary Embolus Mother Family Medical History: No Reported History General Exam Limitations: no limitations General appearance: alert, in distress (rolled on unaffected side) Head exam: Present: atraumatic, normocephalic, normal inspection ENT exam: Present: normal exam, mucous membranes moist Neck exam: Present: normal inspection, full ROM. Absent: tenderness, meningismus, lymphadenopathy Respiratory exam: Present: normal lung sounds bilaterally, chest wall tenderness. Absent: respiratory distress, wheezes, rales, rhonchi, stridor Cardiovascular Exam: Present: regular rate, normal rhythm, normal heart sounds. Absent: systolic murmur, diastolic murmur, rubs, gallop, clicks GI/Abdominal exam: Present: soft, normal bowel sounds. Absent: distended, tenderness, guarding, rebound, rigid Back exam: Present: tenderness Neurological exam: Present: alert, oriented X3, CN II-XII intact Skin exam: Present: warm, dry, intact, normal color. Absent: rash Course Vital Signs 05/06/24 05/06/24 10:29 12:55 Temperature 97.5 F L 98.2 F Pulse Rate 76 58 L Respiratory 20 18 Rate Blood Pressure 166/81 188/94 O2 Sat by Pulse 96 99 Oximetry Medical Decision Making - Medical Decision Making Was pt. sent in by a medical professional or institution (, DARWNI, COMMUNITY HEALTH SPECIALIST, urgent care, hospital, or shelter...) When possible be specific @ -No Did you speak to anyone other than the patient for history (EMS, parent, family, police, friend...)? What history was obtained from this source @ -No Did you review nursing and triage notes (agree or disagree)? Why? @ -I reviewed and agree with nursing and triage notes Were old charts reviewed (outside hosp., previous admission, EMS record, old EKG, old radiological studies, urgent care reports/EKG's, shelter records)? Report findings @ -No old charts were reviewed Differential Diagnosis (chest pain, altered mental status, abdominal pain women, abdominal pain men, vaginal bleeding, weakness, fever, dyspnea, syncope, headache, dizziness, GI bleed, back pain, seizure, CVA, palpatations, mental health, musculoskeletal)? @ -Rib contusion rib fracture pneumothorax EKG interpreted by me (3pts min.). @ -[None X-rays interpreted by me (1pt min.). @ -Rib series with PA chest negative for acute abnormality no acute fracture or pneumothorax CT interpreted by me (1pt min.). @ -None done U/S interpreted by me (1pt. min.). @ -None done What testing was considered but not performed or refused? (CT, X-rays, U/S, labs)? Why? @ -None What meds were considered but not given or refused? Why? @ -None Did you discuss the management of the patient with other professionals (professionals i.e. , DARWIN, COMMUNITY HEALTH SPECIALIST, lab, RT, psych nurse, social service assistant, predatory animal hunter, teacher, facility security officer, disease case manager)? Give summary @ -No Was smoking cessation discussed for >3mins.? @ -No Was critical care preformed (if so, how long)? @ -No Were there social determinants of health that impacted care today? How? (Homelessness, low income, unemployed, alcoholism, drug addiction, transportation, low edu. Level, literacy, decrease access to med. care, snf, rehab)? @ -No Was there de-escalation of care discussed even if they declined (Discuss DNR or withdrawal of care, Hospice)? DNR status @ -No What co-morbidities impacted this encounter? (DM, HTN, Smoking, COPD, CAD, Cancer, CVA, ARF, Chemo, Hep., AIDS, mental health diagnosis, sleep apnea, morbid obesity)? @ -None Was patient admitted / discharged? Hospital course, mention meds given and route, prescriptions, significant lab abnormalities, going to OR and other pertinent info. @ -Discharge patient has reproducible chest wall pain. X-rays are negative patient discharged in stable condition. Undiagnosed new problem with uncertain prognosis? @ -No Drug Therapy requiring intensive monitoring for toxicity (Heparin, Nitro, Insulin, Cardizem)? @ -No Were any procedures done? @ -No Diagnosis/symptom? @ -Chest wall injury Acute, or Chronic, or Acute on Chronic? @ -Acute Uncomplicated (without systemic symptoms) or Complicated (systemic symptoms)? @ -Uncomplicated Side effects of treatment? @ -No Exacerbation, Progression, or Severe Exacerbation? @ -No Poses a threat to life or bodily function? How? (Chest pain, USA, [place], pneumonia, PE, COPD, DKA, ARF, appy, cholecystitis, CVA, Diverticulitis, Homicidal, Suicidal, threat to staff... and all critical care pts) @ -No Disposition Clinical Impression: Strain of chest wall Disposition: HOME SELF-CARE Condition: Stable Instructions (If sedation given, give patient instructions): Chest Wall Pain (ED) Additional Instructions: Please return to the Emergency Department if symptoms worsen or any other concerns. Is patient prescribed a controlled substance at d/c from ED?: No Referrals: Jyoti Boateng MD [Primary Care Provider] - 1-2 days Time of Disposition: 12:36
--- NOTE | 2024-05-06 11:39 | XR ---
EXAMINATION TYPE: XR ribs RT w pa chest xray DATE OF EXAM: 05/06/2024 11:35 AM COMPARISON: Chest x-ray May 24, 2023. CLINICAL INDICATION: Female, 84 years old with history of pain, TECHNIQUE: Single frontal view of the chest is obtained. A frontal and oblique images of the right-si ded ribs. FINDINGS: Elevated right hemidiaphragm is redemonstrated. There is no suspicious new focal air space opacity, pleural effusion, or pneumothorax seen. The cardiac silhouette size is within normal limit s with atherosclerotic change in the aortic knob. The osseous structures are intact. Dedicated images of the right-sided ribs show no acute displaced fractures. Overlying soft tissue is unremarkable. IMPRESSION: 1. No acute process. [facility], , 05/06/2024 11:37 AM
[2024-05-06] MEDS: ACET/COD 300 MG/30 MG STARTER PACK 6 TAB BTL PO STA (12:54)
[2024-05-06 12:59] VITALS: BP 188/94; PULSE 58; RESP 18; TEMP 98.2
== END 2024-05-06 13:12 | disposition home or self-care (01) ==
LOC: EC 10:17
DX: S29.011A Strain of muscle and tendon of front wall of thorax, initial encounter (principal); Z87.891 Personal history of nicotine dependence; Z88.0 Allergy status to penicillin; Z88.2 Allergy status to sulfonamides; Z91.012 Allergy to eggs; W22.03XA Walked into furniture, initial encounter
CPT/HCPCS: 99285

== ENCOUNTER → 2024-06-27 | Outpatient (CLI) | payer MEDICARE ==
[2024-06-27 10:54] LABS: Basophils # (A) 0.1 k/uL (0-0.2); Basophils % (A) 1 %; Eosinophils # (A) 0.2 k/uL (0-0.7); Eosinophils % (A) 5 %; HCT 43.1 % (34.0-46.0); HGB 13.7 gm/dL (11.4-16.0); Lymphocytes # (A) 1.4 k/uL (1.0-4.8); Lymphocytes % (A) 29 %; MCH 29.5 pg (25.0-35.0); MCHC 31.8 g/dL (31.0-37.0); MCV 92.5 fL (80.0-100.0); Monocytes # (A) 0.3 k/uL (0-1.0); Monocytes % (A) 6 %; Neutrophils # (A) 2.7 k/uL (1.3-7.7); Neutrophils % (A) 56 %; Platelet Count 327 k/uL (150-450); RBC 4.66 m/uL (3.80-5.40); WBC 4.8 k/uL (3.8-10.6)
[2024-06-27 11:05] LABS: ALT 13 U/L (4-34); AST 26 U/L (14-36); African American GFR (CKD) >90 (>60 ml/min/1.73 sqM); Albumin 4.1 g/dL (3.5-5.0); Alkaline Phosphatase 64 U/L (38-126); Anion Gap 7 mmol/L; Blood Urea Nitrogen 13 mg/dL (7-17); Calcium 9.5 mg/dL (8.4-10.2); Carbon Dioxide 26 mmol/L (22-30); Chloride 104 mmol/L (98-107); Glucose 86 mg/dL (74-99); Non-African American GFR(CKD) 80 (>60 ml/min/1.73 sqM); Potassium 4.2 mmol/L (3.5-5.1); Sodium 137 mmol/L (137-145); Total Bilirubin 0.8 mg/dL (0.2-1.3); Total Protein 6.4 g/dL (6.3-8.2)
[2024-06-27 11:22] LABS: T4, Free (Free Thyroxine) 1.69 ng/dL (0.78-2.19)
[2024-06-27 16:22] LABS: Chol/HDL Ratio 2.93 Ratio; LDL Cholesterol,Calculated 112.3 mg/dL (0.0-131.0); VLDL Calculation 16.06 mg/dL (5.00-40.00)
== END | disposition home or self-care (01) ==
LOC: LABT 09:58
PROVIDERS: ATTEND Internal Medicine
DX: E78.5 Hyperlipidemia, unspecified (principal); E55.9 Vitamin D deficiency, unspecified
CPT/HCPCS: 80053; 80061; 82306; 84439; 84443; 85025